=== PATIENT | female | born 1940 | race Caucasian/White ===

== ENCOUNTER → 2017-01-11 | Outpatient (CLI) | payer MEDICARE, BC ==
[2017-01-11 10:18] LABS: ALT 22 U/L (9-52); AST 19 U/L (14-36); Alkaline Phosphatase 97 U/L (38-126); Anion Gap 12 mmol/L; Blood Urea Nitrogen 16 mg/dL (7-17); Calcium 9.5 mg/dL (8.4-10.2); Carbon Dioxide 24 mmol/L (22-30); Chloride 106 mmol/L (98-107); Cholesterol 170 mg/dL (<200); Glucose 141 mg/dL (74-99); HDL Cholesterol 97 mg/dL (40-60); Non-African American GFR(MDRD) >60 (>60 ml/min/1.73 sqM); Potassium 4.5 mmol/L (3.5-5.1); Sodium 142 mmol/L (137-145); Total Bilirubin 0.5 mg/dL (0.2-1.3); Total Protein 7.5 g/dL (6.3-8.2); Triglycerides 102 mg/dL (<150)
[2017-01-11 21:44] LABS: Hemoglobin A1C 7.1 % (4.2-6.1)
== END | disposition home or self-care (01) ==
LOC: LABWHC1 08:49
PROVIDERS: ATTEND Internal Medicine
DX: E11.9 Type 2 diabetes mellitus without complications (principal); R53.83 Other fatigue; R53.81 Other malaise
CPT/HCPCS: 36415; 80053; 80061; 82043; 83036; 84439; 84443

== ENCOUNTER 2017-04-20 17:14 | Inpatient (IN) | payer MEDICARE, BC ==
[2017-04-20] MEDS ORDERED: SODIUM CHLORIDE 0.9% 1,000 ML IV STA (18:17)
--- NOTE | 2017-04-20 18:19 | ED ---
General Adult HPI - General Chief complaint: Chest Pain Stated complaint: SOB, HEADACHE, PAIN BETWEEN SHOULDER BLADES Time Seen by Provider: 04/20/17 17:52 Source: patient, RN notes reviewed, old records reviewed Mode of arrival: wheelchair Limitations: no limitations - History of Present Illness Initial comments: This is a 76-year-old female here for evaluation of shortness of breath, increasing shortness impression was of breath worse with exertion. Patient also felt chills, feverish. Denies cough or congestion. Denies specific fever , no travel history. Patient denies current shortness of breath that she is laying down. Patient says currently the shortness of breath, not feeling well feeling weak - Related Data Home Medications Medication Instructions Recorded Confirmed Acarbose [Precose] 50 mg PO HS 10/05/15 10/05/15 Albuterol Inhaler [Ventolin Hfa 1 puff INHALATION RT-Q8H PRN 10/05/15 10/05/15 Inhaler] Ferrous Sulfate [Feosol] 325 mg PO BID 10/05/15 10/05/15 Hydrochlorothiazide [Hydrodiuril] 25 mg PO HS 10/05/15 10/05/15 Levothyroxine Sodium [Synthroid] 100 mcg PO HS 10/05/15 10/05/15 Lisinopril [Zestril] 2.5 mg PO HS 10/05/15 10/05/15 Lovastatin [Mevacor] 40 mg PO HS 10/05/15 10/05/15 Sertraline [Zoloft] 50 mg PO HS 10/05/15 10/05/15 glipiZIDE [Glucotrol XL] 5 mg PO DAILY 10/05/15 10/05/15 metFORMIN HCL [Glucophage] 500 mg PO BID 10/05/15 10/05/15 prednisoLONE ACETATE 1% OPHTH 1 drops RIGHT EYE TID 10/05/15 10/05/15 [Pred Forte 1%] Previous Rx's Medication Instructions Recorded Cephalexin [Keflex] 500 mg PO Q8HR #21 cap 10/07/15 Insulin Detemir [Levemir] 14 unit SQ DAILY #1 vial 10/07/15 Allergies Allergy/AdvReac Type Severity Reaction Status Date / Time No Known Allergies Allergy Verified 04/20/17 17:36 Review of Systems ROS Statement: Those systems with pertinent positive or pertinent negative responses have been documented in the HPI. ROS Other: All systems not noted in ROS Statement are negative. Past Medical History Past Medical History: Diabetes Mellitus, Hyperlipidemia, Hypertension, Osteoarthritis (OA), Thyroid Disorder Additional Past Medical History / Comment(s): SIGMOID DIVERTICULOSIS, BENIGN POLYPS REMOVED, STRESS INCONT OF URINE, HEMORRHOIDS, History of Any Multi-Drug Resistant Organisms: None Reported Past Surgical History: Hysterectomy, Orthopedic Surgery Additional Past Surgical History / Comment(s): CORNEA TRANSPLANT Past Anesthesia/Blood Transfusion Reactions: No Reported Reaction Past Psychological History: Depression Smoking Status: Former smoker Past Alcohol Use History: None Reported Past Drug Use History: None Reported - Past Family History Father Family Medical History: Cancer Additional Family Medical History / Comment(s): LEUKEMIA Mother Family Medical History: Cancer Additional Family Medical History / Comment(s): BREAST, STOMACH,LIVER CANCER. EMPHYSEMA. General Exam Limitations: no limitations General appearance: alert, in no apparent distress, anxious Head exam: Present: atraumatic, normocephalic, normal inspection Eye exam: Present: normal appearance, PERRL, EOMI. Absent: scleral icterus, conjunctival injection, periorbital swelling ENT exam: Present: normal exam, mucous membranes moist Neck exam: Present: normal inspection. Absent: tenderness, meningismus, lymphadenopathy Respiratory exam: Present: normal lung sounds bilaterally. Absent: respiratory distress, wheezes, rales, rhonchi, stridor Cardiovascular Exam: Present: normal rhythm, tachycardia, normal heart sounds. Absent: systolic murmur, diastolic murmur, rubs, gallop, clicks GI/Abdominal exam: Present: soft, normal bowel sounds. Absent: distended, tenderness, guarding, rebound, rigid Extremities exam: Present: normal inspection, full ROM, normal capillary refill. Absent: tenderness, pedal edema, joint swelling, calf tenderness Back exam: Present: normal inspection Neurological exam: Present: alert, oriented X3, CN II-XII intact Psychiatric exam: Present: normal affect, normal mood Skin exam: Present: warm, dry, intact, normal color. Absent: rash Course Vital Signs 04/20/17 04/20/17 17:34 19:04 Temperature 99.0 F Pulse Rate 103 H 100 Respiratory 20 18 Rate Blood Pressure 115/67 108/49 O2 Sat by Pulse 98 97 Oximetry - Reevaluation(s) Reevaluation #1: 04/20/17 19:11 Patient still feels shortness of breath EKG Findings - EKG Comments: EKG Findings:: EKG shows normal sinus rhythm rate of 94, IN 1:30, QRS 80, QTC 427 Medical Decision Making - Medical Decision Making 76 female ER for evaluation of chest pain shortness of breath. Symptoms occurred earlier today [place]. It persisted. Patient be admitted for cardiac observation - Lab Data Result diagrams: 04/20/17 18:00 04/20/17 18:00 Lab Results 04/20/17 04/20/17 04/20/17 Range/Units 18:00 18:00 18:00 WBC 15.6 H (3.8-10.6) k/uL RBC 4.04 (3.80-5.40) m/uL Hgb 11.4 (11.4-16.0) gm/dL Hct 35.6 (34.0-46.0) % MCV 88.1 (80.0-100.0) fL MCH 28.3 (25.0-35.0) pg MCHC 32.1 (31.0-37.0) g/dL RDW 13.9 (11.5-15.5) % Plt Count 286 (150-450) k/uL Neutrophils % 93 % Lymphocytes % 2 % Monocytes % 4 % Eosinophils % 1 % Basophils % 0 % Neutrophils # 14.5 H (1.3-7.7) k/uL Lymphocytes # 0.4 L (1.0-4.8) k/uL Monocytes # 0.6 (0-1.0) k/uL Eosinophils # 0.1 (0-0.7) k/uL Basophils # 0.0 (0-0.2) k/uL PT (9.0-12.0) sec INR (<1.2) APTT (22.0-30.0) sec D-Dimer (<0.60) mg/L FEU Sodium 139 (137-145) mmol/L Potassium 4.2 (3.5-5.1) mmol/L Chloride 105 (98-107) mmol/L Carbon Dioxide 21 L (22-30) mmol/L Anion Gap 13 mmol/L BUN 24 H (7-17) mg/dL Creatinine 1.20 H (0.52-1.04) mg/dL Est GFR (MDRD) Af Amer 53 (>60 ml/min/1.73 sqM) Est GFR (MDRD) Non-Af 44 (>60 ml/min/1.73 sqM) Glucose 140 H (74-99) mg/dL Calcium 9.5 (8.4-10.2) mg/dL Magnesium 1.3 L (1.6-2.3) mg/dL Total Bilirubin 0.6 (0.2-1.3) mg/dL AST 25 (14-36) U/L ALT 30 (9-52) U/L Alkaline Phosphatase 97 (38-126) U/L Total Creatine Kinase 36 (30-135) U/L CK-MB (CK-2) 0.6 (0.0-2.4) ng/mL CK-MB (CK-2) Rel Index 1.7 Troponin I <0.012 (0.000-0.034) ng/mL NT-Pro-B Natriuret Pep pg/mL Total Protein 7.4 (6.3-8.2) g/dL Albumin 4.3 (3.5-5.0) g/dL Lipase 154 (23-300) U/L 04/20/17 04/20/17 Range/Units 18:00 18:00 WBC (3.8-10.6) k/uL RBC (3.80-5.40) m/uL Hgb (11.4-16.0) gm/dL Hct (34.0-46.0) % MCV (80.0-100.0) fL MCH (25.0-35.0) pg MCHC (31.0-37.0) g/dL RDW (11.5-15.5) % Plt Count (150-450) k/uL Neutrophils % % Lymphocytes % % Monocytes % % Eosinophils % % Basophils % % Neutrophils # (1.3-7.7) k/uL Lymphocytes # (1.0-4.8) k/uL Monocytes # (0-1.0) k/uL Eosinophils # (0-0.7) k/uL Basophils # (0-0.2) k/uL PT 9.6 (9.0-12.0) sec INR 0.9 (<1.2) APTT 23.8 (22.0-30.0) sec D-Dimer 1.46 H (<0.60) mg/L FEU Sodium (137-145) mmol/L Potassium (3.5-5.1) mmol/L Chloride (98-107) mmol/L Carbon Dioxide (22-30) mmol/L Anion Gap mmol/L BUN (7-17) mg/dL Creatinine (0.52-1.04) mg/dL Est GFR (MDRD) Af Amer (>60 ml/min/1.73 sqM) Est GFR (MDRD) Non-Af (>60 ml/min/1.73 sqM) Glucose (74-99) mg/dL Calcium (8.4-10.2) mg/dL Magnesium (1.6-2.3) mg/dL Total Bilirubin (0.2-1.3) mg/dL AST (14-36) U/L ALT (9-52) U/L Alkaline Phosphatase (38-126) U/L Total Creatine Kinase (30-135) U/L CK-MB (CK-2) (0.0-2.4) ng/mL CK-MB (CK-2) Rel Index Troponin I (0.000-0.034) ng/mL NT-Pro-B Natriuret Pep 232 pg/mL Total Protein (6.3-8.2) g/dL Albumin (3.5-5.0) g/dL Lipase (23-300) U/L - Radiology Data Radiology results: report reviewed (Chest x-ray is negative, CT is pending), image reviewed Critical Care Time Critical Care Time: Yes Total Critical Care Time: 31 Disposition Clinical Impression: Weakness, Chest pain Disposition: ADMITTED IP TO THIS [facility] Condition: Undetermined Referrals: Dany Hansen MD [Primary Care Provider] - 1-2 days
[2017-04-20 18:33] LABS: Basophils % (A) 0 %; CH 28.4; CHCM 32.4; Eosinophils # (A) 0.1 k/uL (0-0.7); Eosinophils % (A) 1 %; HCT 35.6 % (34.0-46.0); HDW 2.24; HGB 11.4 gm/dL (11.4-16.0); Luc # (Auto) 0.05; Luc % (Auto) 0; Lymphocytes # (A) 0.4 k/uL (1.0-4.8); Lymphocytes % (A) 2 %; MCH 28.3 pg (25.0-35.0); MCHC 32.1 g/dL (31.0-37.0); MCV 88.1 fL (80.0-100.0); Mean Platelet Volume 7.7; Monocytes # (A) 0.6 k/uL (0-1.0); Monocytes % (A) 4 %; Neutrophils # (A) 14.5 k/uL (1.3-7.7); Neutrophils % (A) 93 %; RBC 4.04 m/uL (3.80-5.40); RDW 13.9 % (11.5-15.5); WBC 15.6 k/uL (3.8-10.6); WBC (Perox) 14.75
--- NOTE | 2017-04-20 18:38 | XR ---
EXAMINATION TYPE: XR chest 2V DATE OF EXAM: 04/20/2017 COMPARISON: October 05, 2015 HISTORY: Shortness of breath TECHNIQUE: Frontal and lateral views of the chest are obtained. FINDINGS: Scattered senescent parenchymal changes noted. Hyperinflation compatible with COPD. No evidence for infiltrate. No evidence for atelectasis. Heart size is stable. Mediastinal structures are stable and grossly unremarkable. No evidence for hilar prominence. Degenerative changes dorsal spine. IMPRESSION: 1. No evidence for acute pulmonary disease.
[2017-04-20 18:50] LABS: Calcium 9.5 mg/dL (8.4-10.2); Magnesium 1.3 mg/dL (1.6-2.3); Potassium 4.2 mmol/L (3.5-5.1); Total Bilirubin 0.6 mg/dL (0.2-1.3); Total Protein 7.4 g/dL (6.3-8.2)
[2017-04-20 18:53] LABS: Creatine Kinase 36 U/L (30-135)
[2017-04-20 19:00] LABS: INR 0.9 (<1.2); Partial Thromboplastin Time 23.8 sec (22.0-30.0); Prothrombin Time 9.6 sec (9.0-12.0)
[2017-04-20 19:04] LABS: Creatine Kinase MB 0.6 ng/mL (0.0-2.4); Troponin I <0.012 ng/mL (0.000-0.034)
[2017-04-20] MEDS ORDERED: MORPHINE SULFATE 4 MG/ML SYRINGE IV PRN (19:09)
[2017-04-20] MEDS ORDERED: HEPARIN SODIUM,PORCINE 5,000 UNIT/ML 1 ML VIAL IV ONE (19:09)
[2017-04-20] MEDS ORDERED: NITROGLYCERIN SL TABS 0.4 MG TAB SUBLINGUAL PRN (19:09)
[2017-04-20] MEDS ORDERED: ASPIRIN 81 MG CHEW PO STA (19:09)
[2017-04-20] MEDS ORDERED: RX INFO: IV CONTRAST WAS GIVEN 1 EACH MISC MISCELLANE PRN (19:09)
[2017-04-20] MEDS ORDERED: HEPARIN SODIUM,PORCINE/D5W PMX 25,000 UNIT in DEXTROSE/WATER 1 500ML.BAG IV SCH (19:15)
[2017-04-20 21:01] LABS: Glucose,Whole Blood 162 mg/dL (75-99)
[2017-04-20] MEDS: MAGNESIUM SULFATE-D5W PMX 1 GM in DEXTROSE/WATER 1 100ML.BAG IVPB SCH ×2 (21:25→23:31)
[2017-04-20 22:42] VITALS: BMI 31.2
[2017-04-21 00:22] VITALS: RESP 18
[2017-04-21 01:58] LABS: Creatine Kinase 36 U/L (30-135)
[2017-04-21 02:11] LABS: Creatine Kinase MB 0.3 ng/mL (0.0-2.4); Troponin I <0.012 ng/mL (0.000-0.034)
[2017-04-21] MEDS: HEPARIN SODIUM,PORCINE 5,000 UNIT/ML 1 ML VIAL IV PRN ×2 (02:18→09:38)
[2017-04-21 06:17] LABS: Glucose,Whole Blood 152 mg/dL (75-99)
[2017-04-21 06:42] LABS: Mean Platelet Volume 8.1
[2017-04-21 07:03] LABS: Magnesium 2.1 mg/dL (1.6-2.3)
[2017-04-21 07:07] LABS: Creatine Kinase 28 U/L (30-135)
[2017-04-21 07:20] LABS: Creatine Kinase MB 0.3 ng/mL (0.0-2.4); Troponin I <0.012 ng/mL (0.000-0.034)
[2017-04-21] MEDS ORDERED: glipiZIDE 10 MG TAB PO SCH (07:30)
[2017-04-21] MEDS ORDERED: metFORMIN 500 MG TAB PO SCH (07:30)
--- NOTE | 2017-04-21 08:12 | P.HPIM ---
History of Present Illness Chief complaint: Chest and back pain associated with the headache and shortness of breath. Diarrhea. History of present illness: The patient is a 76-year-old female who presented to the emergency room yesterday evening. The patient states that that morning she had some loose stools and some chills and did not feel good. Slight congestion. Apparently later that afternoon she was playing with her grandchildren and developed chest and back discomfort. The pain appeared to be more related to movement. No cough or hemoptysis. No nausea or vomiting. Patient and her daughter came to the emergency room. Past medical history: Past history of type 2 diabetes Also history of hypertension Hyperlipidemia Hypothyroidism on replacement therapy History of treated depression Osteoarthritis History of sigmoid diverticulosis Former tobacco user and mild intermittent asthma. Previous surgical history includes hysterectomy and arthroscopic surgery of the right knee. Medications: Precose 50 mg daily with evening meal Albuterol inhaler 1-2 puffs every 8 hours when necessary Ferrous sulfate 325 mg once or twice a day with food 125 mg Synthroid 100 g daily lisinopril 2.5 mg Lovastatin 40 mg Zoloft 50 mg Glucotrol 5 mg XL daily Metformin 500 mg twice a day Prednisolone acetate 1% eyedrops 1 drop right eye 3 times a day. No known ALLERGIES Review of systems: The patient does complain of some mild headache. No visual disturbances. No cough with phlegm production at this time. The patient did have some loose stool yesterday morning but no melena or diarrhea. Patient does have some urinary incontinence at times but no dysuria. No unusual leg edema or extremity discomfort. Social history: Patient is a former smoker. She lives still fairly independently with help from her daughter. No history of any excessive alcohol use. Family history: Positive for breast and liver cancer along with history of emphysema. Physical examination Vital signs presently reveal temperature 98.1 with a pulse of 91 and regular. Respirations are 18 and blood pressure 123/55. She is 98% saturated on 2 L. Head and neck exam is unremarkable. Extraocular movements are intact. Pupils are equal and reactive. Neck supple without adenopathy, bruits or masses. No thyromegaly. Breast and pelvic exam deferred. Lungs were generally clear diffusely. Heart tones were regular without murmurs or rubs. Abdomen is soft and nontender. No organomegaly detected. Extremities reveal no edema. Neurologically she is alert and oriented. Cranial nerves intact. No focal weakness noted. Laboratory values: White count is 15.6 with hemoglobin 11.4 and a platelet count of 286. Her INR was 0.9. D-dimer that was elevated at 1.46. CO2 content was 21. Potassium and sodium were normal. Blood urea nitrogen was 24 with a creatinine of 1.2 given her GFR 44. Blood sugars up and around 140-160. CKs and troponins have remained low with a CK in the 30s and troponins less than 0.0123. Albumin and total protein were normal. Total cholesterol is only 140 with a LDL cholesterol 38. Chest x-ray shows no evidence of acute disease. EKG yesterday and this morning shows a normal sinus rhythm without any ischemic changes. Impressions and plans: Overall this 76-year-old female with chest and back discomfort and so far negative workup with the chest x-ray, EKG, and enzymes. Patient did have an elevated d-dimer and VQ scan was ordered for this morning. We will also ask for cardiology evaluation and consultation. The patient does have multiple comorbidities which include her previous smoking history along with hypertension , diabetes and hyperlipidemia although these appear to be well-controlled at this time. Past Medical History Past Medical History: Diabetes Mellitus, Hyperlipidemia, Hypertension, Osteoarthritis (OA), Thyroid Disorder Additional Past Medical History / Comment(s): SIGMOID DIVERTICULOSIS, BENIGN POLYPS REMOVED, STRESS INCONT OF URINE, HEMORRHOIDS, History of Any Multi-Drug Resistant Organisms: None Reported Past Surgical History: Hysterectomy, Orthopedic Surgery Additional Past Surgical History / Comment(s): CORNEA TRANSPLANT Past Anesthesia/Blood Transfusion Reactions: No Reported Reaction Past Psychological History: Depression Smoking Status: Former smoker Past Alcohol Use History: None Reported Additional Past Alcohol Use History / Comment(s): SMOKED X 44 YEARS, QUIT 2011( SMOKED 1 PPD) Past Drug Use History: None Reported - Past Family History Father Family Medical History: Cancer Additional Family Medical History / Comment(s): LEUKEMIA Mother Family Medical History: Cancer Additional Family Medical History / Comment(s): BREAST, STOMACH,LIVER CANCER. EMPHYSEMA. Medications and Allergies Home Medications Medication Instructions Recorded Confirmed Type Albuterol Inhaler [Ventolin Hfa 1 puff INHALATION RT-TID PRN 10/05/15 04/20/17 History Inhaler] Ferrous Sulfate [Feosol] 325 mg PO HS 10/05/15 04/20/17 History Hydrochlorothiazide [Hydrodiuril] 25 mg PO HS 10/05/15 04/20/17 History Lisinopril [Zestril] 2.5 mg PO HS 10/05/15 04/20/17 History Lovastatin [Mevacor] 40 mg PO HS 10/05/15 04/20/17 History Sertraline [Zoloft] 50 mg PO HS 10/05/15 04/20/17 History metFORMIN HCL [Glucophage] 1,000 mg PO BID 10/05/15 04/20/17 History Acarbose 50 mg PO HS 04/20/17 04/20/17 History Insulin Detemir [Levemir] 8 unit SQ HS 04/20/17 04/20/17 History Levothyroxine Sodium [Synthroid] 137 mcg PO HS 04/20/17 04/20/17 History Pioglitazone [Actos] 15 mg PO QAM 04/20/17 04/20/17 History glipiZIDE [Glucotrol] 10 mg PO AC-BID 04/20/17 04/20/17 History Allergies Allergy/AdvReac Type Severity Reaction Status Date / Time No Known Allergies Allergy Verified 04/20/17 17:36 Physical Exam Vitals: Vital Signs Temp Pulse Pulse Resp BP BP Pulse Ox 04/21/17 03:35 98.1 F 91 18 123/55 98 04/21/17 03:34 90 18 04/21/17 00:00 97.7 F 90 18 112/53 100 04/20/17 19:54 98.7 F 104 H 17 107/60 98 04/20/17 19:32 97.8 F 82 18 108/58 98 04/20/17 19:04 100 18 108/49 97 04/20/17 17:34 99.0 F 103 H 20 115/67 98 Intake and Output 04/20/17 04/21/17 04/21/17 22:59 06:59 14:59 Intake Total 119.259 Output Total 300 200 Balance -300 -80.741 Intake: Intake, IV Titration 119.259 Amount Heparin Sodium,Porcine/ 119.259 D5w Pmx 25,000 unit In Dextrose/Water 1 500ml. bag @ 12 UNITS/KG/HR 17. 41 mls/hr IV .Q24H [facility] Rx #:[id number] Output: Urine 300 200 Other: Voiding Method Bedpan # Voids 1 1 Weight 72.575 kg 76 kg Results CBC & Chem 7: 04/21/17 05:42 04/20/17 18:00 Labs: Abnormal Lab Results - Last 24 Hours (Table) 04/20/17 04/20/17 04/20/17 Range/Units 18:00 18:00 18:00 WBC 15.6 H (3.8-10.6) k/uL Neutrophils # 14.5 H (1.3-7.7) k/uL Lymphocytes # 0.4 L (1.0-4.8) k/uL D-Dimer 1.46 H (<0.60) mg/L FEU Carbon Dioxide 21 L (22-30) mmol/L BUN 24 H (7-17) mg/dL Creatinine 1.20 H (0.52-1.04) mg/dL Glucose 140 H (74-99) mg/dL POC Glucose (mg/dL) (75-99) mg/dL Magnesium 1.3 L (1.6-2.3) mg/dL Total Creatine Kinase (30-135) U/L HDL Cholesterol (40-60) mg/dL 04/20/17 04/21/17 04/21/17 Range/Units 20:58 05:42 05:42 WBC (3.8-10.6) k/uL Neutrophils # (1.3-7.7) k/uL Lymphocytes # (1.0-4.8) k/uL D-Dimer (<0.60) mg/L FEU Carbon Dioxide (22-30) mmol/L BUN (7-17) mg/dL Creatinine (0.52-1.04) mg/dL Glucose (74-99) mg/dL POC Glucose (mg/dL) 162 H (75-99) mg/dL Magnesium (1.6-2.3) mg/dL Total Creatine Kinase 28 L (30-135) U/L HDL Cholesterol 82 H (40-60) mg/dL 04/21/17 Range/Units 06:14 WBC (3.8-10.6) k/uL Neutrophils # (1.3-7.7) k/uL Lymphocytes # (1.0-4.8) k/uL D-Dimer (<0.60) mg/L FEU Carbon Dioxide (22-30) mmol/L BUN (7-17) mg/dL Creatinine (0.52-1.04) mg/dL Glucose (74-99) mg/dL POC Glucose (mg/dL) 152 H (75-99) mg/dL Magnesium (1.6-2.3) mg/dL Total Creatine Kinase (30-135) U/L HDL Cholesterol (40-60) mg/dL Thrombosis Risk Factor Assmnt - Choose All That Apply Each Risk Factor Represents 3 Points: Age 75 years or older Thrombosis Risk Factor Assessment Total Risk Factor Score: 3 Thrombosis Risk Factor Assessment Level: Moderate Risk
[2017-04-21] MEDS ORDERED: ASPIRIN 325 MG TAB PO SCH (09:00)
[2017-04-21 11:19] VITALS: BP 123/59; PULSE 68; TEMP 98.6
[2017-04-21 12:12] LABS: Hemoglobin A1C 7.1 % (4.2-6.1)
--- NOTE | 2017-04-21 12:40 | NM ---
EXAMINATION TYPE: NM pul vent and perfuse DATE OF EXAM: 04/21/2017 COMPARISON: NONE HISTORY: Shortness of breath TECHNIQUE: Utilizing inhalation of 71.4 mCi Tc 99m DTPA aerosol and intravenous injection of 5.5 mCi of Tc 99m MAA, ventilation and perfusion images are acquired post injection in multiple projections. FINDINGS: There is central accumulation of radiotracer compatible with COPD. Several matched perfusion ventilat ion defects seen. No evidence for perfusion mismatch. IMPRESSION: Low probability for pulmonary embolism.
--- NOTE | 2017-04-21 12:40 | P.CRDCN ---
History of Present Illness History of present illness: 76-year-old female with a history of hypertension, well controlled, diabetes adult onset and sleep anemia on statins LDL 38 who presents with interscapular discomfort and tightness in the chest with normal cardiac enzymes 3. ECG does not show any definite ST segment abnormalities VQ scan pending for elevated d-dimer Mediastinum appears normal Examination is normal heart sounds are normal I would recommend outpatient stress testing and follow-up at the least See full consult by nurse practitioner/CP Past Medical History Past Medical History: Diabetes Mellitus, Hyperlipidemia, Hypertension, Osteoarthritis (OA), Thyroid Disorder Additional Past Medical History / Comment(s): SIGMOID DIVERTICULOSIS, BENIGN POLYPS REMOVED, STRESS INCONT OF URINE, HEMORRHOIDS, History of Any Multi-Drug Resistant Organisms: None Reported Past Surgical History: Hysterectomy, Orthopedic Surgery Additional Past Surgical History / Comment(s): CORNEA TRANSPLANT Past Anesthesia/Blood Transfusion Reactions: No Reported Reaction Past Psychological History: Depression Smoking Status: Former smoker Past Alcohol Use History: None Reported Additional Past Alcohol Use History / Comment(s): SMOKED X 44 YEARS, QUIT 2011( SMOKED 1 PPD) Past Drug Use History: None Reported - Past Family History Father Family Medical History: Cancer Additional Family Medical History / Comment(s): LEUKEMIA Mother Family Medical History: Cancer Additional Family Medical History / Comment(s): BREAST, STOMACH,LIVER CANCER. EMPHYSEMA. Medications and Allergies Home Medications Medication Instructions Recorded Confirmed Type Albuterol Inhaler [Ventolin Hfa 1 puff INHALATION RT-TID PRN 10/05/15 04/20/17 History Inhaler] Ferrous Sulfate [Feosol] 325 mg PO HS 10/05/15 04/20/17 History Hydrochlorothiazide [Hydrodiuril] 25 mg PO HS 10/05/15 04/20/17 History Lisinopril [Zestril] 2.5 mg PO HS 10/05/15 04/20/17 History Lovastatin [Mevacor] 40 mg PO HS 10/05/15 04/20/17 History Sertraline [Zoloft] 50 mg PO HS 10/05/15 04/20/17 History metFORMIN HCL [Glucophage] 1,000 mg PO BID 10/05/15 04/20/17 History Acarbose 50 mg PO HS 04/20/17 04/20/17 History Insulin Detemir [Levemir] 8 unit SQ HS 04/20/17 04/20/17 History Levothyroxine Sodium [Synthroid] 137 mcg PO HS 04/20/17 04/20/17 History Pioglitazone [Actos] 15 mg PO QAM 04/20/17 04/20/17 History glipiZIDE [Glucotrol] 10 mg PO AC-BID 04/20/17 04/20/17 History Allergies Allergy/AdvReac Type Severity Reaction Status Date / Time No Known Allergies Allergy Verified 04/20/17 17:36 Physical Exam Vitals: Vital Signs Temp Pulse Pulse Resp BP BP Pulse Ox 04/21/17 11:17 98.6 F 68 18 123/59 95 04/21/17 08:00 99.1 F 95 18 123/57 97 04/21/17 03:35 98.1 F 91 18 123/55 98 04/21/17 03:34 90 18 04/21/17 00:00 97.7 F 90 18 112/53 100 04/20/17 19:54 98.7 F 104 H 17 107/60 98 04/20/17 19:32 97.8 F 82 18 108/58 98 04/20/17 19:04 100 18 108/49 97 04/20/17 17:34 99.0 F 103 H 20 115/67 98 Intake and Output 04/20/17 04/21/17 04/21/17 22:59 06:59 14:59 Intake Total 119.259 159.284 Output Total 300 200 Balance -300 -80.741 159.284 Intake: Intake, IV Titration 119.259 159.284 Amount Heparin Sodium,Porcine/ 119.259 159.284 D5w Pmx 25,000 unit In Dextrose/Water 1 500ml. bag @ 12 UNITS/KG/HR 17. 41 mls/hr IV .Q24H [facility] Rx #:[id number] Output: Urine 300 200 Other: Voiding Method Bedpan # Voids 1 1 Weight 72.575 kg 76 kg Results 04/21/17 05:42 04/20/17 18:00 Cardiac Enzymes 04/20/17 04/20/17 04/21/17 Range/Units 18:00 18:00 01:08 AST 25 (14-36) U/L CK-MB (CK-2) 0.6 0.3 (0.0-2.4) ng/mL Troponin I <0.012 <0.012 (0.000-0.034) ng/mL 04/21/17 Range/Units 05:42 AST (14-36) U/L CK-MB (CK-2) 0.3 (0.0-2.4) ng/mL Troponin I <0.012 (0.000-0.034) ng/mL Coagulation 04/20/17 04/21/17 04/21/17 Range/Units 18:00 01:08 08:45 PT 9.6 (9.0-12.0) sec APTT 23.8 29.8 41.9 H (22.0-30.0) sec Lipids 04/21/17 Range/Units 05:42 Triglycerides 100 (<150) mg/dL Cholesterol 140 (<200) mg/dL HDL Cholesterol 82 H (40-60) mg/dL CBC 04/20/17 04/21/17 Range/Units 18:00 05:42 WBC 15.6 H (3.8-10.6) k/uL RBC 4.04 (3.80-5.40) m/uL Hgb 11.4 (11.4-16.0) gm/dL Hct 35.6 (34.0-46.0) % Plt Count 286 220 (150-450) k/uL Comprehensive Metabolic Panel 04/20/17 Range/Units 18:00 Sodium 139 (137-145) mmol/L Potassium 4.2 (3.5-5.1) mmol/L Chloride 105 (98-107) mmol/L Carbon Dioxide 21 L (22-30) mmol/L BUN 24 H (7-17) mg/dL Creatinine 1.20 H (0.52-1.04) mg/dL Glucose 140 H (74-99) mg/dL Calcium 9.5 (8.4-10.2) mg/dL AST 25 (14-36) U/L ALT 30 (9-52) U/L Alkaline Phosphatase 97 (38-126) U/L Total Protein 7.4 (6.3-8.2) g/dL Albumin 4.3 (3.5-5.0) g/dL Current Medications Generic Name Dose Route Start Last Admin Trade Name Freq PRN Reason Stop Dose Admin Aspirin 325 mg 04/21/17 09:00 04/21/17 09:40 Aspirin PO 325 mg DAILY INE[facility] Administration Glipizide 10 mg 04/21/17 07:30 Glucotrol PO AC-BID [facility] Heparin Sodium (Porcine) 0 unit 04/20/17 19:09 04/21/17 09:38 Heparin IV 1,900 unit Q6HR PRN Administration Low PTT Protocol Heparin Sodium/Dextrose 25,000 500 mls @ 17.41 mls/hr 04/20/17 19:15 09:38 unit/ IV Solution IV 17 units/kg/hr .Q24H [facility] 24.67 mls/hr Protocol Titration 12 UNITS/KG/HR Insulin Detemir 8 unit 04/21/17 21:00 Levemir SQ HS [facility] Metformin HCl 1,000 mg 04/21/17 07:30 Glucophage PO AC-BID [facility] Miscellaneous Information 1 each 04/20/17 19:09 Rx Info: Iv Contrast Was Given MISCELLANE 04/22/17 19:10 DAILY PRN Per Protocol Morphine Sulfate 4 mg 04/20/17 19:09 Morphine Sulfate (Inj) IV Q5M PRN Chest Pain Nitroglycerin 0.4 mg 04/20/17 19:09 Nitrostat SUBLINGUAL Q5M PRN Chest Pain Intake and Output 04/20/17 04/21/17 04/21/17 22:59 06:59 14:59 Intake Total 119.259 159.284 Output Total 300 200 Balance -300 -80.741 159.284 Intake: Intake, IV Titration 119.259 159.284 Amount Heparin Sodium,Porcine/ 119.259 159.284 D5w Pmx 25,000 unit In Dextrose/Water 1 500ml. bag @ 12 UNITS/KG/HR 17. 41 mls/hr IV .Q24H [facility] Rx #:[id number] Output: Urine 300 200 Other: Voiding Method Bedpan # Voids 1 1 Weight 72.575 kg 76 kg 04/21/17 05:42 04/20/17 18:00
[2017-04-21 13:10] LABS: Glucose,Whole Blood 134 mg/dL (75-99)
--- NOTE | 2017-04-21 14:07 | P.CRDCN ---
History of Present Illness Consult date: 04/21/17 Reason for Consult (text): chest pain Chief complaint: back pain History of present illness: This is a pleasant 76-year-old female with a history of hypertension, diabetes and hyperlipidemia. He presented to the emergency department with complaints of intrascapular discomfort and tightness in her chest nausea. Troponins have been negative 3. EKG shows sinus rhythm without acute ST-T wave abnormalities. D-dimer was elevated at 1.46 and a VQ scan has been ordered. The patient's magnesium was low on admission at 1.3 and this has been supplemented and has normalized to 2.1. Laboratory values showed a BUN 24 and creatinine 1.2. Chest x-ray showed no acute cardiopulmonary process. Lipids show very good control with an LDL of 38. On examination, patient is resting comfortably in bed. She denies further complaints of chest or back discomfort and has had no nausea or vomiting since admission. Past Medical History Past Medical History: Diabetes Mellitus, Hyperlipidemia, Hypertension, Osteoarthritis (OA), Thyroid Disorder Additional Past Medical History / Comment(s): SIGMOID DIVERTICULOSIS, BENIGN POLYPS REMOVED, STRESS INCONT OF URINE, HEMORRHOIDS, History of Any Multi-Drug Resistant Organisms: None Reported Past Surgical History: Hysterectomy, Orthopedic Surgery Additional Past Surgical History / Comment(s): CORNEA TRANSPLANT Past Anesthesia/Blood Transfusion Reactions: No Reported Reaction Past Psychological History: Depression Smoking Status: Former smoker Past Alcohol Use History: None Reported Additional Past Alcohol Use History / Comment(s): SMOKED X 44 YEARS, QUIT 2011( SMOKED 1 PPD) Past Drug Use History: None Reported - Past Family History Father Family Medical History: Cancer Additional Family Medical History / Comment(s): LEUKEMIA Mother Family Medical History: Cancer Additional Family Medical History / Comment(s): BREAST, STOMACH,LIVER CANCER. EMPHYSEMA. Medications and Allergies Home Medications Medication Instructions Recorded Confirmed Type Albuterol Inhaler [Ventolin Hfa 1 puff INHALATION RT-TID PRN 10/05/15 04/20/17 History Inhaler] Ferrous Sulfate [Feosol] 325 mg PO HS 10/05/15 04/20/17 History Hydrochlorothiazide [Hydrodiuril] 25 mg PO HS 10/05/15 04/20/17 History Lisinopril [Zestril] 2.5 mg PO HS 10/05/15 04/20/17 History Lovastatin [Mevacor] 40 mg PO HS 10/05/15 04/20/17 History Sertraline [Zoloft] 50 mg PO HS 10/05/15 04/20/17 History metFORMIN HCL [Glucophage] 1,000 mg PO BID 10/05/15 04/20/17 History Acarbose 50 mg PO HS 04/20/17 04/20/17 History Insulin Detemir [Levemir] 8 unit SQ HS 04/20/17 04/20/17 History Levothyroxine Sodium [Synthroid] 137 mcg PO HS 04/20/17 04/20/17 History Pioglitazone [Actos] 15 mg PO QAM 04/20/17 04/20/17 History glipiZIDE [Glucotrol] 10 mg PO AC-BID 04/20/17 04/20/17 History Allergies Allergy/AdvReac Type Severity Reaction Status Date / Time No Known Allergies Allergy Verified 04/20/17 17:36 Physical Exam Vitals: Vital Signs Temp Pulse Pulse Resp BP BP Pulse Ox 04/21/17 11:17 98.6 F 68 18 123/59 95 04/21/17 08:00 99.1 F 95 18 123/57 97 04/21/17 03:35 98.1 F 91 18 123/55 98 04/21/17 03:34 90 18 04/21/17 00:00 97.7 F 90 18 112/53 100 04/20/17 19:54 98.7 F 104 H 17 107/60 98 04/20/17 19:32 97.8 F 82 18 108/58 98 04/20/17 19:04 100 18 108/49 97 04/20/17 17:34 99.0 F 103 H 20 115/67 98 Intake and Output 04/20/17 04/21/17 04/21/17 22:59 06:59 14:59 Intake Total 119.259 159.284 Output Total 300 200 Balance -300 -80.741 159.284 Intake: Intake, IV Titration 119.259 159.284 Amount Heparin Sodium,Porcine/ 119.259 159.284 D5w Pmx 25,000 unit In Dextrose/Water 1 500ml. bag @ 12 UNITS/KG/HR 17. 41 mls/hr IV .Q24H [facility] Rx #:[id number] Output: Urine 300 200 Other: Voiding Method Bedpan # Voids 1 1 Weight 72.575 kg 76 kg PHYSICAL EXAMINATION: HEENT: Head is atraumatic, normocephalic. Pupils equal, round. Neck is supple. There is no elevated jugular venous pressure. HEART EXAMINATION: Heart sounds regular, S1 and S2 normal. No murmur or gallop heard. CHEST EXAMINATION: Lungs are clear to auscultation and precussion. No chest wall tenderness is noted on palpation or with deep breathing. ABDOMEN: Soft, nontender. Bowel sounds are heard. No organomegaly noted. EXTREMITIES: 2+ peripheral pulses with no evidence of peripheral edema and no calf tenderness noted. NEUROLOGIC patient is awake, alert and oriented x3. . Results 04/21/17 05:42 04/20/17 18:00 Cardiac Enzymes 04/20/17 04/20/17 04/21/17 Range/Units 18:00 18:00 01:08 AST 25 (14-36) U/L CK-MB (CK-2) 0.6 0.3 (0.0-2.4) ng/mL Troponin I <0.012 <0.012 (0.000-0.034) ng/mL 04/21/17 Range/Units 05:42 AST (14-36) U/L CK-MB (CK-2) 0.3 (0.0-2.4) ng/mL Troponin I <0.012 (0.000-0.034) ng/mL Coagulation 04/20/17 04/21/17 04/21/17 Range/Units 18:00 01:08 08:45 PT 9.6 (9.0-12.0) sec APTT 23.8 29.8 41.9 H (22.0-30.0) sec Lipids 04/21/17 Range/Units 05:42 Triglycerides 100 (<150) mg/dL Cholesterol 140 (<200) mg/dL HDL Cholesterol 82 H (40-60) mg/dL CBC 04/20/17 04/21/17 Range/Units 18:00 05:42 WBC 15.6 H (3.8-10.6) k/uL RBC 4.04 (3.80-5.40) m/uL Hgb 11.4 (11.4-16.0) gm/dL Hct 35.6 (34.0-46.0) % Plt Count 286 220 (150-450) k/uL Comprehensive Metabolic Panel 04/20/17 Range/Units 18:00 Sodium 139 (137-145) mmol/L Potassium 4.2 (3.5-5.1) mmol/L Chloride 105 (98-107) mmol/L Carbon Dioxide 21 L (22-30) mmol/L BUN 24 H (7-17) mg/dL Creatinine 1.20 H (0.52-1.04) mg/dL Glucose 140 H (74-99) mg/dL Calcium 9.5 (8.4-10.2) mg/dL AST 25 (14-36) U/L ALT 30 (9-52) U/L Alkaline Phosphatase 97 (38-126) U/L Total Protein 7.4 (6.3-8.2) g/dL Albumin 4.3 (3.5-5.0) g/dL Current Medications Generic Name Dose Route Start Last Admin Trade Name Freq PRN Reason Stop Dose Admin Aspirin 325 mg 04/21/17 09:00 04/21/17 09:40 Aspirin PO 325 mg DAILY INE[facility] Administration Glipizide 10 mg 04/21/17 07:30 04/21/17 12:51 Glucotrol PO 10 mg AC-BID INEZ Administration Heparin Sodium (Porcine) 0 unit 04/20/17 19:09 04/21/17 09:38 Heparin IV 1,900 unit Q6HR PRN Administration Low PTT Protocol Heparin Sodium/Dextrose 25,000 500 mls @ 17.41 mls/hr 04/20/17 19:15 09:38 unit/ IV Solution IV 17 units/kg/hr .Q24H [facility] 24.67 mls/hr Protocol Titration 12 UNITS/KG/HR Insulin Detemir 8 unit 04/21/17 21:00 Levemir SQ HS INEZ Metformin HCl 1,000 mg 04/21/17 07:30 04/21/17 12:51 Glucophage PO 1,000 mg AC-BID INEZ Administration Miscellaneous Information 1 each 04/20/17 19:09 Rx Info: Iv Contrast Was Given MISCELLANE 04/22/17 19:10 DAILY PRN Per Protocol Morphine Sulfate 4 mg 04/20/17 19:09 Morphine Sulfate (Inj) IV Q5M PRN Chest Pain Nitroglycerin 0.4 mg 04/20/17 19:09 Nitrostat SUBLINGUAL Q5M PRN Chest Pain Intake and Output 04/20/17 04/21/17 04/21/17 22:59 06:59 14:59 Intake Total 119.259 159.284 Output Total 300 200 Balance -300 -80.741 159.284 Intake: Intake, IV Titration 119.259 159.284 Amount Heparin Sodium,Porcine/ 119.259 159.284 D5w Pmx 25,000 unit In Dextrose/Water 1 500ml. bag @ 12 UNITS/KG/HR 17. 41 mls/hr IV .Q24H [facility] Rx #:[id number] Output: Urine 300 200 Other: Voiding Method Bedpan # Voids 1 1 Weight 72.575 kg 76 kg 04/21/17 05:42 04/20/17 18:00 EKG Interpretations (text) Sinus rhythm Assessment and Plan Plan: Assessment and plan Chest and interscapular discomfort, troponins negative 3, elevated d-dimer awaiting VQ scan results. #2 diabetes #3 hypertension #4 hyperlipidemia From cardiology perspective, we'll obtain 2-D echo with Doppler. She was instructed to increase her activity, get up out of bed walking. From our standpoint, if VQ scan is negative and patient continues to be asymptomatic, patient may be discharged home. Will follow-up in the office with her and schedule her for an outpatient stress test. BACK STAYER note has been reviewed, I agree with a documented findings and plan of care. Patient was seen and examined.
--- NOTE | 2017-04-21 17:23 | ECHOF ---
Referral Reason:chest pain MEASUREMENTS -------- HEIGHT: 152.4 cm WEIGHT: 75.7 kg BP: 123/57 RVIDd: 2.4 cm (< 3.3) IVSd: 1.3 cm (0.6 - 1.1) LVIDd: 4.1 cm (3.9 - 5.3) LVPWd: 1.3 cm (0.6 - 1.1) IVSs: 1.7 cm LVIDs: 2.8 cm LVPWs: 1.7 cm LAESV Index (A-L): 30.82 ml/m Ao Diam: 3.2 cm (2.0 - 3.7) AV Cusp: 1.6 cm (1.5 - 2.6) LA Diam: 3.6 cm (2.7 - 3.8) MV E Radhames: 0.99 m/s MV DecT: 249 ms MV A Radhames: 1.21 m/s MV E/A Ratio: 0.82 RAP: 5.00 mmHg RVSP: 34.27 mmHg FINDINGS -------- Sinus rhythm. This was a technically adequate study. There is mild concentric left ventricular hypertrophy. Overall left ventricular systolic function is normal with, an EF between 55 - 60 %. The right ventricle is normal in size and function. LA is midly dilated 29-33ml/m2. The right atrium is normal in size. Aortic valve is trileaflet and is mildly thickened. There is no evidence of aortic regurgitation. There is no evidence of aortic stenosis. The mitral valve leaflets are mildly thickened. There is trace mitral regurgitation. Trace tricuspid regurgitation present. There is borderline pulmonary hypertension. The right ventricular systolic pressure, as measured by Doppler, is 34.27mmHg. The pulmonic valve was not well visualized. The aortic root size is normal. Normal inferior vena cava with normal inspiratory collapse consistent with estimated right atrial pressure of 5 mmHg. The pericardium is normal. There is no pericardial effusion. CONCLUSIONS -------- 1. Sinus rhythm. 2. There is borderline pulmonary hypertension. 3. The right ventricular systolic pressure, as measured by Doppler, is 34.27mmHg. 4. The pulmonic valve was not well visualized. 5. The aortic root size is normal. 6. There is no pericardial effusion. 7. This was a technically adequate study. 8. There is mild concentric left ventricular hypertrophy. 9. Overall left ventricular systolic function is normal with, an EF between 55 - 60 %. 10. LA is midly dilated 29-33ml/m2. 11. Aortic valve is trileaflet and is mildly thickened. 12. The mitral valve leaflets are mildly thickened. 13. There is trace mitral regurgitation. 14. Trace tricuspid regurgitation present. DISCOUNT CLERK: Bib Gordillo RDCS
[2017-04-21] MEDS ORDERED: INSULIN DETEMIR 100 UNIT/ML 10 ML VIAL SQ SCH (21:00)
--- NOTE | 2017-04-27 12:23 | DS ---
Mrs. Byrd is a 76-year-old female who presented initially to the emergency room with back and chest discomfort. She had shortness of breath, headache and loose stool associated with this. Patient had multiple risk factors including diabetes, hypertension, and hyperlipidemia along with hypothyroidism. Patient was observed on the monitor floor. The initial laboratory values and subsequent values revealed normal troponin and CK values. Her white count was elevated at 15.6 with hemoglobin 11.4 and platelet count of 286. D-dimer was elevated at 1.46. Initial chest x-ray was unremarkable and EKG did not show any ischemic changes. Because of the elevated d-dimer a subsequent VQ scan was obtained and because of the chest pain Cardiology was consulted. The VQ scan showed low probability for any pulmonary embolus. Echocardiogram showed a normal sinus rhythm, borderline hypertension. Right ventricular systolic pressure was 34.2 and ejection fraction was between 55 and 60%, which is considered normal. Patient remains asymptomatic, was able to be ambulated at this point and patient was discharged to home with follow up in the office. Resume her home medications: Acarbose 50 mg with her major meal. She takes albuterol inhaler one puff three times a day. Ferrous sulfate 325 daily, hydrochlorothiazide 25 mg daily, Levemir insulin 8 units daily, levothyroxine 137 mcg, lisinopril 2.5 daily, lovastatin 40 mg daily, Actos 15 mg daily, Zoloft 50 mg daily, Glucotrol twice a day, and metformin 1000 mg which is two 500 tablets twice a day. FINAL DISCHARGE DIAGNOSES: 1. Musculoskeletal chest pain with an elevated d-dimer, pulmonary embolus ruled out. 2. Past medical history of diabetes. 3. Hypertension. 4. Hyperlipidemia. 5. Hypothyroidism on replacement. 6. History of treated depression. 7. Osteoarthritis. 8. Sigmoid diverticulosis. 9. History of former tobacco use and mild intermittent asthma. 10. Also previous surgical history that includes hysterectomy, previous arthroscopic surgery of the right knee. Patient is also recommended to have a stress test as an outpatient and this will be followed up after being seen in the office. She is to call for any questions, concerns or problems should arise. IRENE
== END 2017-04-21 16:10 | disposition home or self-care (01) | DRG 313 ==
LOC: EC 17:14 → 6SEL 19:09
PROVIDERS: ADMIT Internal Medicine; ATTEND Internal Medicine
DX: R07.89 Other chest pain (principal); E11.9 Type 2 diabetes mellitus without complications; I10 Essential (primary) hypertension; F32.9 Major depressive disorder, single episode, unspecified; D72.829 Elevated white blood cell count, unspecified; J45.20 Mild intermittent asthma, uncomplicated; M19.90 Unspecified osteoarthritis, unspecified site; R51 Headache; M54.9 Dorsalgia, unspecified; E03.9 Hypothyroidism, unspecified; E78.5 Hyperlipidemia, unspecified; R53.1 Weakness; R68.83 Chills (without fever); R19.7 Diarrhea, unspecified; R11.0 Nausea; K64.9 Unspecified hemorrhoids; N39.3 Stress incontinence (female) (male); K57.30 Diverticulosis of large intestine without perforation or abscess without bleeding; Z87.891 Personal history of nicotine dependence; Z80.0 Family history of malignant neoplasm of digestive organs; Z80.6 Family history of leukemia; Z79.4 Long term (current) use of insulin; Z82.5 Family history of asthma and other chronic lower respiratory diseases; Z79.899 Other long term (current) drug therapy; Z90.710 Acquired absence of both cervix and uterus; Z80.3 Family history of malignant neoplasm of breast; Z86.010 Personal history of colon polyps; Z94.7 Corneal transplant status
CPT/HCPCS: 36415; 71020; 78582; 80053; 80061; 82550; 82553; 83036; 83690; 83735; 83880; 84443; 84484; 85025; 85049; 85379; 85610; 85730; 93005; 93306; 96365; 96376; 99291

== ENCOUNTER → 2017-10-24 | Outpatient (CLI) | payer MEDICARE ==
[2017-10-24 09:53] LABS: Anion Gap 14 mmol/L; Blood Urea Nitrogen 20 mg/dL (7-17); Carbon Dioxide 27 mmol/L (22-30); Chloride 101 mmol/L (98-107); Cholesterol 179 mg/dL (<200); Glucose 125 mg/dL (74-99); HDL Cholesterol 106 mg/dL (40-60); LDL Cholesterol,Calculated 49 mg/dL (0-99); Potassium 3.5 mmol/L (3.5-5.1); Sodium 142 mmol/L (137-145); Triglycerides 119 mg/dL (<150)
[2017-10-24 19:13] LABS: Hemoglobin A1C 7.6 % (4.0-6.0)
== END | disposition home or self-care (01) ==
LOC: LABWHC1 08:40
PROVIDERS: ATTEND Internal Medicine
DX: E87.8 Other disorders of electrolyte and fluid balance, not elsewhere classified (principal); E11.9 Type 2 diabetes mellitus without complications; R53.83 Other fatigue; E78.5 Hyperlipidemia, unspecified
CPT/HCPCS: 36415; 80048; 80061; 83036; 84443

== ENCOUNTER → 2017-11-22 | Outpatient (CLI) | payer MEDICARE ==
--- NOTE | 2017-11-22 17:16 | BD ---
EXAMINATION TYPE: MG DEXA axial skeleton. DATE OF EXAM: 11/22/2017 COMPARISON: 06/07/2011 CLINICAL HISTORY: 77-year-old female postmenopausal screening, M85.80 Height: 60 IN Weight: 183 LBS FRAX RISK QUESTIONS: Alcohol (3 or more units per day): NO Family History (Parent hip fracture): NO Glucocorticoids (More than 3mos): NO (Ex: prednisone, prednisolone, methylprednisolone, dexamethasone, and hydrocortisone). History of Fracture in Adulthood: YES LT ANKLE AGE 56; LT ELBOW AGE 63 Secondary Osteoporosis: 1. Type 1 Diabetes: NO 2. Hyperthyroidism: NO 3. Menopause before 45: NO AGE 51 4. Malnutrition: NO 5. Chronic liver disease: NO Rheumatoid Arthritis: NO Current Tobacco Use: NO RISK FACTORS HISTORY OF: Active: YES Postmenopausal woman: AGE 51 MEDICATIONS: Thyroid Medications: YES Which medication: Levothyroxine How Lon+ YEARS Additional Medications: METFORMIN,LOVASTATIN, LEVOTHYROXINE, HCTZ, GLIPIZIDE, SERTRALINE, IRON, JANUV IA, LISINOPRIL, INSULIN EXAM MEASUREMENTS: Bone mineral densitometry was performed using the PowerDsine System. Bone mineral density as measured about the Lumbar spine is: ----- L1-L4(G/cm2): 1.114 T Score Values are as follows: ----- L2: -0.9 ----- L3: -0.2 ----- L4: -0.7 ----- L1-L4: -0.5 Bone mineral density has: Increased 0.5% since study of: 06/07/2011 Bone mineral density about the R hip (g/cm2): 0.957 Bone mineral density about the L hip (g/cm2): 0.950 T Score values are as follows: -----R Neck: -0.6 -----L Neck: -0.6 -----R Total: 0.1 -----L Total: 0.1 Bone mineral density has: Increased 2.3% since study of: 06/07/2011 IMPRESSION: Normal (Values between +1 and -1 indicate normal bone mass). Consider repeating this study in 5 year s or sooner if there is some new clinical indication. NOTE: T-SCORE=SD OF THE YOUNG ADULT MEAN.
--- NOTE | 2017-11-23 13:57 | MM ---
Reason for exam: screening (asymptomatic). Last mammogram was performed 1 year and 6 months ago. History: Patient is postmenopausal. Family history of breast cancer in mother at age 50 and breast cancer in maternal grandmother at age 60. Physical Findings: A clinical breast exam by your physician is recommended on an annual basis and results should be correlated with mammographic findings. MG 3D Screening Mammo W/Cad Bilateral CC and MLO view(s) were taken. Prior study comparison: June 07, 2016, bilateral MG 3d screening mammo w/cad. March 24, 2015, bilateral MG screening mammo w CAD. There are scattered fibroglandular densities. Finding: There are typically benign vascular calcifications in both breasts. There is a chronic nodularity in the left breast. There is no discrete abnormality. ASSESSMENT: Benign, BI-RAD 2 RECOMMENDATION: Routine screening mammogram of both breasts in 1 year.
== END | disposition home or self-care (01) ==
LOC: RADMAMWWP 13:15
PROVIDERS: ATTEND Internal Medicine
DX: Z12.31 Encounter for screening mammogram for malignant neoplasm of breast (principal); M85.80 Other specified disorders of bone density and structure, unspecified site
CPT/HCPCS: 77063; 77067; 77080

== ENCOUNTER → 2018-07-17 | Outpatient (CLI) | payer MEDICARE ==
[2018-07-17 12:06] LABS: HCT 35.7 % (34.0-46.0); HGB 11.5 gm/dL (11.4-16.0); MCH 28.3 pg (25.0-35.0); MCHC 32.3 g/dL (31.0-37.0); MCV 87.7 fL (80.0-100.0); Platelet Count 320 k/uL (150-450); RBC 4.07 m/uL (3.80-5.40); RDW 13.6 % (11.5-15.5); WBC 8.2 k/uL (3.8-10.6)
[2018-07-17 12:20] LABS: Potassium 4.4 mmol/L (3.5-5.1)
== END ==
LOC: LABWHC1 11:08
PROVIDERS: ATTEND Internal Medicine Interventional Cardiology
DX: Z01.812 Encounter for preprocedural laboratory examination (principal); I10 Essential (primary) hypertension; E11.9 Type 2 diabetes mellitus without complications; E78.1 Pure hyperglyceridemia; R07.9 Chest pain, unspecified; R06.02 Shortness of breath
CPT/HCPCS: 36415; 80051; 82565; 84520; 85027

== ENCOUNTER 2018-07-30 10:47 | Day surgery (SDC) | payer MEDICARE ==
[2018-07-25 15:56] VITALS: BMI 33.2
[2018-07-30] MEDS ORDERED: ALPRAZolam 0.25 MG TAB PO PRN (11:03)
[2018-07-30] MEDS ORDERED: ASPIRIN 325 MG TAB PO STA (11:03)
[2018-07-30] MEDS ORDERED: ALPRAZolam 0.5 MG TAB PO PRN (11:03)
[2018-07-30] MEDS ORDERED: NITROGLYCERIN SL TABS 0.4 MG TAB SUBLINGUAL PRN (11:03)
[2018-07-30] MEDS ORDERED: SODIUM CHLORIDE 0.9% 1,000 ML in EMPTY BAG 1 BAG IV ONE (11:03)
[2018-07-30] MEDS ORDERED: ATORVASTATIN 80 MG TAB PO STA (11:03)
[2018-07-30 11:45] LABS: Glucose,Whole Blood 154 mg/dL (75-99)
[2018-07-30] MEDS ORDERED: LIDOCAINE 1% (PF) 10MG/ML VIAL SQ ONE (13:00)
[2018-07-30] MEDS: MIDAZOLAM 2 MG/2 ML VIAL IVP ONE ×2 (13:00→13:11)
[2018-07-30] MEDS ORDERED: SODIUM CHLORIDE 0.9% 1,000 ML IV ONE (13:10)
[2018-07-30] MEDS ORDERED: RX INFO: IV CONTRAST WAS GIVEN 1 EACH MISC MISCELLANE PRN (13:18)
[2018-07-30] MEDS ORDERED: IOPAMIDOL-370 125ML BTL INJ ONE (13:22)
[2018-07-30] MEDS ORDERED: SODIUM CHLORIDE 0.9% 1,000 ML IV SCH (13:30)
[2018-07-30 19:15] VITALS: BP 166/85; PULSE 80; RESP 16; TEMP 98.4
--- NOTE | 2018-07-30 22:05 | CC ---
CARDIAC CATHETERIZATION REPORT DATE OF SERVICE: July 30, 2018 PERFORMING PHYSICIAN: Leandro Augustine MD, whitewater rafting guide. PROCEDURE PERFORMED: 1. Right heart catheterization. 2. Left heart catheterization. 3. Selective right and left coronary angiogram. INDICATION: This is a pleasant 78-year-old female patient who was referred by Dr. Howell for further evaluation of shortness of breath. The patient was evaluated and was found to have no pulmonary etiology for her shortness of breath and there was concern about cardiac etiology of the shortness of breath. Because of that, the right and left heart catheterization was advised. APPROACH: Right common femoral artery and right common femoral vein. COMPLICATION: None. LEVEL OF SEDATION: Moderate with sedation length of 17 minutes. PROCEDURE DESCRIPTION: After obtaining an informed consent, the patient was brought to the cardiac blood and plasma laboratory assistant. The right common femoral vein and right common femoral artery were cannulated using micropuncture technique. Then I placed a 6-Chinese sheath in the right common femoral artery and an 8-Chinese sheath in the right common femoral vein. After that, I did selective right heart catheterization using the Ceres catheter. After that I did left heart catheterization using 6-Chinese pigtail catheter. Then I did selective right and left coronary angiogram using JR4 and JL4 catheters. After that, the procedure was completed without any complications. HEMODYNAMICS: 1. The pulmonary capillary wedge pressure was 16 mmHg. 2. PA pressures were as follows: Systolic 37, diastolic 20: Mean of 27 mmHg. 3. RV pressures were as follows: Systolic of 35 and end-diastolic of 15 mmHg. 4. RA pressure was 7 mmHg. 5. The left ventricular end-diastolic pressure was about 12 mmHg. SELECTIVE CORONARY ANGIOGRAM: 1. The right coronary artery is a medium caliber vessel. It is a dominant vessel. The RCA has mild disease in the midportion. It distally bifurcates into PDA and PLV branches, both are angiographically normal. 2. The left main is angiographically normal. It bifurcates into the circumflex and left anterior descending artery. 3. The left circumflex is a large caliber vessel. It is a nondominant vessel. The left circumflex system has mild disease only. In the midportion, gives rise into 2 obtuse marginal branches they appeared to be angiographically normal. 4. The LAD: The proximal LAD is normal. The mid LAD has mild disease only. This is by the bifurcation of a large diagonal branch which appeared to be angiographically normal and distally is normal as well. CONCLUSION: 1. Normal right heart pressures. 2. Normal left ventricular end-diastolic pressure. 3. Mild nonobstructive coronary artery disease. POSTPROCEDURE MANAGEMENT: Medical treatment and follow up with the patient. TESSY / PARTH: [id number] /
--- NOTE | 2018-07-30 22:05 | LTR ---
DATE OF SERVICE: July 30, [address] Hansen: Ms. Kira Byrd underwent a right and left heart catheterization. The right heart catheterization revealed normal right heart pressures and the left heart catheterization revealed mild nonobstructive coronary artery disease. I want to thank you for allowing us to participate in her care and please do not hesitate to call if you have any questions or concerns. Sincerely, TESSY / KENNYN: [id number] /
== END 2018-07-30 20:20 | disposition home or self-care (01) ==
LOC: CATHCVL 10:47 → 1SOBS 13:34 → CATHCVL 20:20
PROVIDERS: ATTEND Internal Medicine Interventional Cardiology
DX: I25.110 Atherosclerotic heart disease of native coronary artery with unstable angina pectoris (principal); I10 Essential (primary) hypertension; E11.9 Type 2 diabetes mellitus without complications; E78.5 Hyperlipidemia, unspecified; E78.1 Pure hyperglyceridemia; E78.00 Pure hypercholesterolemia, unspecified; J44.9 Chronic obstructive pulmonary disease, unspecified; E03.9 Hypothyroidism, unspecified; Z79.84 Long term (current) use of oral hypoglycemic drugs; Z79.890 Hormone replacement therapy; Z79.899 Other long term (current) drug therapy; Z82.49 Family history of ischemic heart disease and other diseases of the circulatory system
CPT/HCPCS: 93460; C1894 ×2; C1769 ×2; J2250; J2001; Q9967

== ENCOUNTER 2019-04-21 12:32 | Emergency (ER) | payer MEDICARE ==
[2019-04-21 13:05] VITALS: TEMP 97.7
--- NOTE | 2019-04-21 13:08 | ED ---
General Adult HPI - General Chief complaint: Extremity Injury, Lower Stated complaint: lt ankle injury Time Seen by Provider: 04/21/19 12:55 Source: patient, RN notes reviewed Mode of arrival: wheelchair Limitations: no limitations - History of Present Illness Initial comments: This is a 78-year-old female presents emergency Department complaining of left foot pain. Patient states she tripped yesterday and hurt her foot and her ankle was a little sore yesterday but not as bad today. Patient has had quite a bit of swelling on the anterior lateral aspect of her midfoot. Patient denies any toe pain. Patient denies any heel pain. Patient denies any leg pain. Patient denies any other injury at this time. - Related Data Home Medications Medication Instructions Recorded Confirmed Hydrochlorothiazide [Hydrodiuril] 25 mg PO HS 10/05/15 04/21/19 Lovastatin [Mevacor] 40 mg PO HS 10/05/15 04/21/19 Sertraline [Zoloft] 50 mg PO HS 10/05/15 04/21/19 Insulin Detemir (Levemir) [Levemir] 15 unit SQ HS 04/20/17 04/21/19 Pioglitazone [Actos] 30 mg PO QAM 04/20/17 04/21/19 glipiZIDE [Glucotrol] 10 mg PO AC-BID 04/20/17 04/21/19 Budesonide/Formoterol Fumarate 2 puff INHALATION RT-BID 07/25/18 04/21/19 [Symbicort 80-4.5 Mcg Inhaler] Levothyroxine Sodium 125 mcg PO HS 07/25/18 04/21/19 Albuterol Inhaler [Ventolin Hfa 2 puff INHALATION RT-Q6H PRN 04/21/19 04/21/19 Inhaler] metFORMIN HCL 1,000 mg PO BID 04/21/19 04/21/19 Allergies Allergy/AdvReac Type Severity Reaction Status Date / Time nitrofurantoin Allergy Unknown Verified 04/21/19 13:33 [From Macrobid] Review of Systems ROS Statement: Those systems with pertinent positive or pertinent negative responses have been documented in the HPI. ROS Other: All systems not noted in ROS Statement are negative. Past Medical History Past Medical History: Diabetes Mellitus, Hyperlipidemia, Hypertension, Osteoarthritis (OA), Thyroid Disorder Additional Past Medical History / Comment(s): SIGMOID DIVERTICULOSIS, BENIGN POLYPS REMOVED, STRESS INCONT OF URINE, HEMORRHOIDS, History of Any Multi-Drug Resistant Organisms: None Reported Past Surgical History: Hysterectomy, Orthopedic Surgery Additional Past Surgical History / Comment(s): KNEE SURGERY (2013),CORNEA TRANSPLANT Past Anesthesia/Blood Transfusion Reactions: No Reported Reaction Past Psychological History: Depression Smoking Status: Former smoker Past Alcohol Use History: None Reported Past Drug Use History: None Reported - Past Family History Father Family Medical History: Cancer Additional Family Medical History / Comment(s): LEUKEMIA Mother Family Medical History: Cancer Additional Family Medical History / Comment(s): BREAST, STOMACH,LIVER CANCER. EMPHYSEMA. General Exam - General Exam Comments Initial Comments: GENERAL Patient is well-developed and well-nourished. Patient is in mild distress. EYES Patient's pupils are equal and round. Extraocular motion is intact SKIN Unremarkable NEURO The patient is alert and oriented 3 PYSCH Patient has normal interpersonal interactions. MUSCULOSKELETAL Patient's anterior lateral aspect of the foot is swollen there is also some significant tenderness at the base of the fourth and fifth metatarsal. Ankle is not swollen and has full range of motion. Limitations: no limitations Course Vital Signs 04/21/19 12:53 Temperature 97.7 F Pulse Rate 81 Respiratory 18 Rate Blood Pressure 144/69 O2 Sat by Pulse 94 L Oximetry Procedures - Orthopedic Splinting/Casting Injury #1 Side: left Upper Extremity Immobilizer: posterior splint Lower Extremity Injury Location: short leg Lower Extremity Immobilizer: posterior splint Medical Decision Making - Medical Decision Making X-ray of the foot shows a fifth metatarsal fracture at the base. Disposition Clinical Impression: Metatarsal bone fracture Disposition: HOME SELF-CARE Condition: Good Instructions (If sedation given, give patient instructions): Foot Fracture in A dults (ED) Additional Instructions: Nonweightbearing and follow up with orthopedics tomorrow Is patient prescribed a controlled substance at d/c from ED?: No Referrals: Jill Diego NPC [Primary Care Provider] - 1-2 days Time of Disposition: 14:52
--- NOTE | 2019-04-21 13:37 | XR ---
EXAMINATION TYPE: XR ankle complete LT, XR foot complete LT DATE OF EXAM: 04/21/2019 CLINICAL HISTORY: Falling injury yesterday with pain TECHNIQUE: Frontal, lateral and oblique images of the left ankle and foot are obtained. COMPARISON: None. FINDINGS: There is no acute fracture/dislocation evident in the left ankle. The ankle mortise shows moderate narrowing with subchondral cystic change distal tibia. There is focal periosteal reaction l ateral aspect distal tibia could reflect products of old injury. Focal mild to moderate soft tissue s welling over the lateral malleolus is noted. There is acute distracted intra-articular transverse fracture base of fifth metatarsal. The joint sp aces in the left foot are preserved. Overlying soft tissue is unremarkable. IMPRESSION: There is acute distracted intra-articular fracture base of fifth metatarsal. (Alexandra type fracture) (Initial encounter closed type posttraumatic fracture)
[2019-04-21 15:10] VITALS: BP 140/70; PULSE 80; RESP 14
== END 2019-04-21 15:02 | disposition home or self-care (01) ==
LOC: EC 12:32
DX: S92.352A Displaced fracture of fifth metatarsal bone, left foot, initial encounter for closed fracture (principal); E11.9 Type 2 diabetes mellitus without complications; E78.5 Hyperlipidemia, unspecified; I10 Essential (primary) hypertension; E07.9 Disorder of thyroid, unspecified; F32.9 Major depressive disorder, single episode, unspecified; Z87.891 Personal history of nicotine dependence; Z88.1 Allergy status to other antibiotic agents; Z79.4 Long term (current) use of insulin; Z79.51 Long term (current) use of inhaled steroids; Z79.890 Hormone replacement therapy; Z79.899 Other long term (current) drug therapy; W01.0XXA Fall on same level from slipping, tripping and stumbling without subsequent striking against object, initial encounter; Y92.89 Other specified places as the place of occurrence of the external cause
CPT/HCPCS: 29515; 99283

== ENCOUNTER → 2019-05-02 | Outpatient (CLI) | payer MEDICARE | END | disposition home or self-care (01) | LOC: LABWHC1 14:54 | PROVIDERS: ATTEND Orthopaedic Surgery | DX: S92.354D Nondisplaced fracture of fifth metatarsal bone, right foot, subsequent encounter for fracture with routine healing (principal); M79.671 Pain in right foot | CPT/HCPCS: 36415; 82306 ==

== ENCOUNTER → 2019-07-02 | Outpatient (CLI) | payer MEDICARE ==
[2019-07-02 10:25] LABS: Basophils # (A) 0.1 k/uL (0-0.2); Basophils % (A) 1 %; Eosinophils # (A) 0.3 k/uL (0-0.7); Eosinophils % (A) 4 %; HCT 34.1 % (34.0-46.0); HGB 10.8 gm/dL (11.4-16.0); Hypochromasia Slight; Lymphocytes # (A) 1.4 k/uL (1.0-4.8); Lymphocytes % (A) 17 %; MCH 27.3 pg (25.0-35.0); MCHC 31.7 g/dL (31.0-37.0); MCV 86.2 fL (80.0-100.0); Mean Platelet Volume 6.1; Monocytes # (A) 0.5 k/uL (0-1.0); Monocytes % (A) 7 %; Neutrophils # (A) 5.7 k/uL (1.3-7.7); Neutrophils % (A) 69 %; Platelet Count 323 k/uL (150-450); RBC 3.96 m/uL (3.80-5.40); RDW 13.2 % (11.5-15.5); WBC 8.3 k/uL (3.8-10.6)
[2019-07-02 16:24] LABS: African American GFR (CKD) 62.9 (60.0-200.0); Albumin 4.5 g/dL (3.80-4.90); Albumin/Globulin Ratio 1.88 (1.60-3.17); Anion Gap 10.3 mmol/L (4.00-12.00); Calcium 9.4 mg/dL (8.7-10.3); Carbon Dioxide 24.7 mmol/L (21.6-31.8); Chol/HDL Ratio 1.77; Globulin 2.4 g/dL (1.6-3.3); Potassium 4.2 mmol/L (3.5-5.5); Total Bilirubin 0.4 mg/dL (0.3-1.2); Total Protein 6.9 g/dL (6.2-8.2)
[2019-07-02 17:27] LABS: Hemoglobin A1C 6.8 % (4.0-6.0)
== END | disposition home or self-care (01) ==
LOC: LABWHC1 08:34
PROVIDERS: ATTEND Nurse Practitioner Family
DX: E78.5 Hyperlipidemia, unspecified (principal); E03.9 Hypothyroidism, unspecified; D64.9 Anemia, unspecified; I10 Essential (primary) hypertension; E11.9 Type 2 diabetes mellitus without complications
CPT/HCPCS: 36415; 80053; 80061; 83036; 84439; 84443; 85025

== ENCOUNTER → 2021-01-13 | Outpatient (CLI) | payer MEDICARE ==
--- NOTE | 2021-01-18 09:40 | MM ---
Reason for exam: screening (asymptomatic). Last mammogram was performed 3 years and 2 months ago. History: Patient is postmenopausal. Family history of breast cancer in mother at age 50 and breast cancer in maternal grandmother at age 60. Physical Findings: A clinical breast exam by your physician is recommended on an annual basis and results should be correlated with mammographic findings. MG 3D Screening Mammo W/Cad Bilateral CC and MLO view(s) were taken. Prior study comparison: November 22, 2017, bilateral MG 3d screening mammo w/cad. June 07, 2016, bilateral MG 3d screening mammo w/cad. There are scattered fibroglandular densities. Left density slight lateral posterior depth CC view. Benign appearing vascular calcifications. Previous mammotome biopsy in the right breast, benign biopsy clip. This finding is changed when compared with previous exams. ASSESSMENT: Incomplete: need additional imaging evaluation, BI-RAD 0 RECOMMENDATION: Special view mammogram of the left breast. If lesion persists on supplemental views, image directed ultrasound is recommended. [facility] will attempt to contact patient to return for supplemental views and ultrasound if indicated.
== END | disposition home or self-care (01) ==
LOC: RADMAMWWP 13:35
PROVIDERS: ATTEND Family Medicine
DX: Z12.31 Encounter for screening mammogram for malignant neoplasm of breast (principal); Z78.0 Asymptomatic menopausal state; Z80.3 Family history of malignant neoplasm of breast
CPT/HCPCS: 77063; 77067

== ENCOUNTER → 2021-01-20 | Outpatient (CLI) | payer MEDICARE ==
--- NOTE | 2021-01-21 08:33 | MM ---
Reason for exam: additional evaluation requested from abnormal screening. Last mammogram was performed less than 1 month ago. History: Patient is postmenopausal. Family history of breast cancer in mother at age 50 and breast cancer in maternal grandmother at age 60. Physical Findings: Nurse did not find any significant physical abnormalities on exam. MG 3D Work Up W/Cad LT Spot compression CC and spot compression MLO view(s) were taken of the left breast. Prior study comparison: January 13, 2021, bilateral MG 3d screening mammo w/cad. November 22, 2017, bilateral MG 3d screening mammo w/cad. There are scattered fibroglandular densities. Left 1cm nodule just lateral to nipple inferior 3:30-5:30 at chest wall 11cm from nipple. These results were verbally communicated with the patient and result sheet given to the patient on 01/20/21. ASSESSMENT: Incomplete: need additional imaging evaluation, BI-RAD 0 RECOMMENDATION: Ultrasound of the left breast.
--- NOTE | 2021-01-21 08:34 | USB ---
Reason for exam: additional evaluation requested from abnormal screening. History: Patient is postmenopausal. Family history of breast cancer in mother at age 50 and breast cancer in maternal grandmother at age 60. US Breast Limited LT Left limited breast ultrasound including focal area of concern, retroareolar and axilla demonstrates no sonographic finding at mammogram, 3 month follow up diagnostic mammogram of the left breast. These results were verbally communicated with the patient and result sheet given to the patient on 01/20/21. ASSESSMENT: Probably benign, BI-RAD 3 RECOMMENDATION: Follow-up diagnostic mammogram of the left breast in 3 months.
== END | disposition home or self-care (01) ==
LOC: RADMAMWWP 13:35
PROVIDERS: ATTEND Family Medicine
DX: N64.89 Other specified disorders of breast (principal); Z78.0 Asymptomatic menopausal state; Z80.3 Family history of malignant neoplasm of breast
CPT/HCPCS: 77065; 76642; G0279; 77061

== ENCOUNTER → 2021-08-09 | Outpatient (CLI) | payer MEDICARE ==
--- NOTE | 2021-08-09 13:30 | US ---
EXAMINATION TYPE: US kidneys/renal and bladder DATE OF EXAM: 08/09/2021 COMPARISON: NONE CLINICAL HISTORY: N28.9 CKD. HTN, DM EXAM MEASUREMENTS: Right Kidney: 9.7 x 4.1 x 4.2 cm Left Kidney: 10.0 x 5.1 x 3.7 cm Right Kidney: No hydronephrosis or masses seen Left Kidney: No hydronephrosis or masses seen. There is a 1.6 x 1.9 cm cyst at the inferior pole lef t kidney. Bladder: wnl Bilateral Jets seen: Yes IMPRESSION: 1. Left renal cyst.
== END | disposition home or self-care (01) ==
LOC: RADUSWWP 12:52
PROVIDERS: ATTEND Family Medicine
DX: I12.9 Hypertensive chronic kidney disease with stage 1 through stage 4 chronic kidney disease, or unspecified chronic kidney disease (principal); N18.9 Chronic kidney disease, unspecified; E11.9 Type 2 diabetes mellitus without complications; N28.1 Cyst of kidney, acquired
CPT/HCPCS: 76770

== ENCOUNTER → 2022-03-08 | Outpatient (CLI) | payer MEDICARE ==
--- NOTE | 2022-03-08 16:48 | US ---
EXAMINATION TYPE: US kidneys/renal and bladder DATE OF EXAM: 03/08/2022 COMPARISON: US 07/2021 CLINICAL HISTORY: N18.31 KIDNEY DISEASE. CKD Stage 3a EXAM MEASUREMENTS: Right Kidney: 9.6 x 5.3 x 4.7cm Left Kidney: 11.4 x 4.3 x 3.4cm Right Kidney: No hydronephrosis or masses seen, subcentimeter peripelvic cystic area seen measuring 0.7 x 0.6 x 0.9cm Left Kidney: No hydronephrosis or masses seen, Inferior pole cystic area noted measuring 1.9 x 1.7 x 1.8cm,mid/inferior peripelvic anechoic area seen measuring 1.5 x 1.0 x 1.8cm Bladder: Appears wnl, not fully distended Bilateral Jets seen: Yes There is no evidence for hydronephrosis at this point in time. No nephrolithiasis is seen. No solid masses are identified. The urinary bladder is anechoic. Bilateral ureteral jets are seen. IMPRESSION: Bilateral renal cysts
--- NOTE | 2022-03-09 06:28 | US ---
EXAMINATION TYPE: US carotid duplex BILAT DATE OF EXAM: 03/08/2022 COMPARISON: NONE CLINICAL HISTORY: I65.23 OCCLUSION AND STENOSIS. Stenosis EXAM MEASUREMENTS: RIGHT: Peak Systolic Velocity (PSV) cm/sec ----- Right CCA: 103.0 ----- Right ICA: 131.2 ----- Right ECA: 247.6 ICA/CCA ratio: 1.3 RIGHT: End Diastole cm/sec ----- Right CCA: 18.9 ----- Right ICA: 26.8 ----- Right ECA: 0.0 LEFT: Peak Systolic Velocity (PSV) cm/sec ----- Left CCA: 102.1 ----- Left ICA: 146.1 ----- Left ECA: 91.9 ICA/CCA ratio: 1.4 LEFT: End Diastole cm/sec ----- Left CCA: 31.0 ----- Left ICA: 32.3 ----- Left ECA: 9.5 VERTEBRALS (direction of flow): Right Vertebral: Antegrade Left Vertebral: Antegrade Rhythm: Normal Bilateral tortuous CCA vessels,nonocclusive plaque seen bilaterally Suarez scale images show moderate to severe plaque bilaterally centered at the carotid bulb levels. Inc reased common carotid arterial velocities. No elevated ratios or increased end-diastolic velocities i n the internal carotid arteries. IMPRESSION: Severe atherosclerotic changes without hemodynamically significant stenosis clearly seen in either internal carotid artery. Correlate for possible uncontrolled hypertension due to elevated common carotid artery velocities bilaterally. Criteria for Assigning % of Stenosis / Diameter reduction (Estimation based on the indirect measurements of the internal carotid artery velocities (ICA PSV). 1. Normal (no stenosis)=ICA PSV < 125 cm/s: ratio < 2.0: ICA EDV<40 cm/s. 2. Less than 50% stenosis=ICA PSV < 125 cm/s: ratio < 2.0: ICA EDV<40 cm/s. 3. 50 to 69% stenosis=ICA PSV of 125 to 230 cm/s: ration 2.0 ? 4.0: ICA EDV 40-100 cm/s. 4. Greater than 70% stenosis to near occlusion= ICA PSV > 230 cm/s: ratio > 4.0: ICA EDV > 100 cm/s. 5. Near occlusion= ICA PSV velocities may be low or undetectable: variable ratio and ICA EDV. 6. Total occlusion=unable to detect flow.
== END | disposition home or self-care (01) ==
LOC: RADUSWWP 14:44
PROVIDERS: ATTEND Internal Medicine
DX: N18.31 Chronic kidney disease, stage 3a (principal); I65.23 Occlusion and stenosis of bilateral carotid arteries; N28.1 Cyst of kidney, acquired
CPT/HCPCS: 76770; 93880

== ENCOUNTER → 2022-03-14 | Outpatient (CLI) | payer MEDICARE ==
--- NOTE | 2022-03-14 15:13 | XR ---
EXAMINATION TYPE: XR chest 2V DATE OF EXAM: 03/14/2022 COMPARISON: NONE TECHNIQUE: PA and lateral views submitted. HISTORY: Shortness of breath FINDINGS: The lungs are clear and there is no pneumothorax, pleural effusion, or focal pneumonia. Heart size normal. No overt failure. Vague nodule right upper lobe. Hyperinflation suggests COPD. Hypertrophic d egenerative change of the spine. IMPRESSION: 1. COPD. Recommend CT chest exclude a vague 1 cm nodule right upper lobe.
== END | disposition home or self-care (01) ==
LOC: RADXRMAIN 14:38
PROVIDERS: ATTEND Internal Medicine
DX: J44.9 Chronic obstructive pulmonary disease, unspecified (principal)
CPT/HCPCS: 71046

== ENCOUNTER → 2022-11-16 | Outpatient (CLI) | payer MEDICARE ==
--- NOTE | 2022-11-16 13:18 | CT ---
EXAMINATION TYPE: CT chest wo con DATE OF EXAM: 11/16/2022 COMPARISON: 06/30/2022 HISTORY: nodules CT DLP: 339.4 mGycm. Automated Exposure Control for Dose Reduction was Utilized. TECHNIQUE: CT scan of the thorax is performed without IV contrast. FINDINGS: LUNGS: The lungs are grossly clear, there is no concerning consolidative pneumonia identified. Ther e is no pleural effusion or pneumothorax seen. The tracheobronchial tree is patent. Diffuse centrilo bular emphysematous changes are seen. There is patchy peripheral infiltrate in the right middle lobe axial image 33. Punctate 2-3 mm nodule seen superior segment right lower lobe axial image 30 are retrospectively stab le. Patchy density seen in the anterior segment of bilateral upper lobes and posterior left lower lob e axial image 40 most likely in the basis of atelectasis. Patchy nodules in the posterior aspect of t he left measure approximately 4 to 5 mm. 9 mm density seen in the anterior segment subpleural location right upper lobe stable. There is a 3 mm nodule right middle lobe axial image 26 retrospectively stable. There is a 1 to 2 mm nodule axial image 12 left upper lobe retrospectively stable. MEDIASTINUM: Lack of IV contrast is noted to limit evaluation for mediastinal and especially hilar ad enopathy. There are no definitive greater than 1 cm hilar or mediastinal lymph nodes. No cardiomega ly or pericardial effusion is seen. Pericardial lipomatosis seen. Heart size normal. There is dense a therosclerotic change of the coronary arteries and there is atherosclerotic change of the aorta but n o evidence of aneurysm. OTHER: There is a small hiatal hernia. There is a gallstone incidentally noted. Hypertrophic and dege nerative changes of the spine. Small focal 3 mm area of sclerosis involving mid lateral rib most like ly related to bone island IMPRESSION: 1. Peyr-ni-fgqgesdo diffuse emphysematous changes centrilobular pattern are stable. Area of subpleura l 9 mm consolidation or pleural thickening is stable. There is a new patchy area of subcutaneous pleu ral density right upper lobe measuring 11 mm axial image 33 is nonspecific but most likely post atele ctasis or pneumonitis. This could be correlated with a short-term follow-up [address] or alternative ly with PET scan. 2. Less than 5 mm pulmonary nodules are retrospectively stable. Too small to characterize likely danni ign. 3. Faint 4 to 5 mm nodule seen in the posterior segment left lower lobe most likely are postinflammat ory.
== END | disposition home or self-care (01) ==
LOC: RADCTMAIN 11:14
PROVIDERS: ATTEND Internal Medicine Critical Care Medicine
DX: J43.2 Centrilobular emphysema (principal); J94.8 Other specified pleural conditions; R91.1 Solitary pulmonary nodule
CPT/HCPCS: 71250; 82565; 84520

== ENCOUNTER 2023-06-28 10:14 | Emergency (ER) | payer MEDICARE ==
[2023-06-28 10:27] LABS: Glucose,Whole Blood 166 mg/dL (70-110)
[2023-06-28 10:38] VITALS: RESP 18; TEMP 98.4
--- NOTE | 2023-06-28 12:47 | ED ---
General Adult HPI - General Chief complaint: Weakness Stated complaint: Weakness Time Seen by Provider: 06/28/23 12:05 Source: patient, RN notes reviewed, old records reviewed Mode of arrival: ambulatory Limitations: no limitations - History of Present Illness Initial comments: This is an 82-year-old female who presents emergency department for dizziness. 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 Patient states that lasted for about half an hour now she still can simply better and has no symptoms but she would like to be checked out. Patient denies any headache patient denies any focal numbness weakness. Patient denies any chest pain difficulty breathing shortness of breath. Patient denies any recent fever chills or cough per patient's abdominal pain patient denies nausea vomiting diarrhea. Patient denies any nausea vomiting. Patient denies having symptoms of vertigo in the past. - Related Data Home Medications Medication Instructions Recorded Confirmed Lovastatin [Mevacor] 40 mg PO HS 10/05/15 06/28/23 hydroCHLOROthiazide [Hydrodiuril] 25 mg PO HS 10/05/15 06/28/23 Insulin Detemir (Levemir) [Levemir] 10 unit SQ HS 04/20/17 06/28/23 Albuterol Inhaler [Ventolin Hfa 2 puff INHALATION RT-Q6H PRN 04/21/19 06/28/23 Inhaler] Albuterol Nebulized [Ventolin 2.5 mg INHALATION RT-Q4H PRN 06/28/23 06/28/23 Nebulized] Budesonide/Formoterol Fumarate 2 puff INHALATION RT-BID 06/28/23 06/28/23 [Symbicort 160-4.5 Mcg Inhaler] Pioglitazone [Actos] 30 mg PO DAILY 06/28/23 06/28/23 Sertraline [Zoloft] 25 mg PO HS 06/28/23 06/28/23 lisinopriL [Zestril] 2.5 mg PO HS 06/28/23 06/28/23 Previous Rx's Medication Instructions Recorded Meclizine [Antivert] 25 mg PO TID #20 tab 06/28/23 Allergies Allergy/AdvReac Type Severity Reaction Status Date / Time nitrofurantoin Allergy Unknown Verified 06/28/23 13:44 [From Macrobid] Review of Systems ROS Statement: Those systems with pertinent positive or pertinent negative responses have been documented in the HPI. ROS Other: All systems not noted in ROS Statement are negative. Past Medical History Past Medical History: Diabetes Mellitus, Hyperlipidemia, Hypertension, Osteoarthritis (OA), Thyroid Disorder Additional Past Medical History / Comment(s): SIGMOID DIVERTICULOSIS, BENIGN NEENA YPS REMOVED, STRESS INCONT OF URINE, HEMORRHOIDS, History of Any Multi-Drug Resistant Organisms: None Reported Past Surgical History: Hysterectomy, Orthopedic Surgery Additional Past Surgical History / Comment(s): KNEE SURGERY (2013),[employer] Past Anesthesia/Blood Transfusion Reactions: No Reported Reaction Past Psychological History: Depression Smoking Status: Former smoker Past Alcohol Use History: None Reported Past Drug Use History: None Reported - Past Family History Father Family Medical History: Cancer Additional Family Medical History / Comment(s): LEUKEMIA Mother Family Medical History: Cancer Additional Family Medical History / Comment(s): BREAST, STOMACH,LIVER CANCER. EMPHYSEMA. General Exam - General Exam Comments Initial Comments: GENERAL: Patient is well-developed and well-nourished. Patient is nontoxic and well- hydrated and is in no acute distress. ENT: Neck is soft and supple. No significant lymphadenopathy is noted. Oropharynx is clear. Moist mucous membranes. Neck has full range of motion without eliciting any pain. EYES: The sclera were anicteric and conjunctiva were pink and moist. Extraocular movements were intact and pupils were equal round and reactive to light. Eyelids were unremarkable. PULMONARY: Unlabored respirations. Good breath sounds bilaterally. No audible rales rhonchi or wheezing was noted. CARDIOVASCULAR: There is a regular rate and rhythm without any murmurs gallops or rubs. Femoral pulses are equal bilaterally ABDOMEN: Soft and nontender with normal bowel sounds. No palpable organomegaly was noted. There is no palpable pulsatile mass. SKIN: Skin is clear with no lesions or rashes and otherwise unremarkable. NEUROLOGIC: Patient is alert and oriented x3. Cranial nerves II through XII are grossly intact. Motor and sensory are also intact. Normal speech, volume and content. Symmetrical smile. Finger to nose testing is normal bilaterally MUSCULOSKELETAL: Normal extremities with adequate strength and full range of motion. No lower extremity swelling or edema. No calf tenderness. LYMPHATICS: No significant lymphadenopathy is noted PSYCHIATRIC: Normal psychiatric evaluation. Limitations: no limitations Course Vital Signs 06/28/23 10:19 Temperature 98.4 F Pulse Rate 80 Respiratory 18 Rate Blood Pressure 127/52 O2 Sat by Pulse 98 Oximetry Medical Decision Making - Medical Decision Making EKG is interpreted by myself. EKG shows a sinus rhythm at 70 bpm FL interval 259 0 7070 QT interval 44 QTC is 424 patient's EKG shows no ST segment elevation or depression. Was pt. sent in by a medical professional or institution (, [facility], [employer] OPERATOR, urgent care, hospital, or fci...) When possible be specific @ -No Did you speak to anyone other than the patient for history (EMS, parent, family, police, friend...)? What history was obtained from this source @ -No Did you review nursing and triage notes (agree or disagree)? Why? @ -I reviewed and agree with nursing and triage notes Were old charts reviewed (outside hosp., previous admission, EMS record, old EKG, old radiological studies, urgent care reports/EKG's, fci records)? Report findings @ -No old charts were reviewed Differential Diagnosis (chest pain, altered mental status, abdominal pain women, abdominal pain men, vaginal bleeding, weakness, fever, dyspnea, syncope, headache, dizziness, GI bleed, back pain, seizure, CVA, palpatations, mental health, musculoskeletal)? @ -Differential Dizziness: Benign paroxysmal positional Vertigo, Menieres disease, otitis media, acoustic neuroma, vertebrobasilar insufficiency, cerebellar stroke, encephalitis, hypovolemic, arrhythmia, coronary artery syndrome, anemia, this is not meant to be an all-inclusive list EKG interpreted by me (3pts min.). @ -As above X-rays interpreted by me (1pt min.). @ -Chest x-ray shows no acute abnormality CT interpreted by me (1pt min.). @ -CT of the brain shows no acute abnormality U/S interpreted by me (1pt. min.). @ -None done What testing was considered but not performed or refused? (CT, X-rays, U/S, labs)? Why? @ -None What meds were considered but not given or refused? Why? @ -None Did you discuss the management of the patient with other professionals (professionals i.e. , [facility], [employer] OPERATOR, lab, RT, psych nurse, social service manager, clinical studies specialist, teacher, chief scientific officer, case management assistant)? Give summary @ -No Was smoking cessation discussed for >3mins.? @ -No Was critical care preformed (if so, how long)? @ -No Were there social determinants of health that impacted care today? How? (Homelessness, low income, unemployed, alcoholism, drug addiction, transportation, low edu. Level, literacy, decrease access to med. care, fpc, rehab)? @ -No Was there de-escalation of care discussed even if they declined (Discuss DNR or withdrawal of care, Hospice)? DNR status @ -No What co-morbidities impacted this encounter? (DM, HTN, Smoking, COPD, CAD, Cancer, CVA, ARF, Chemo, Hep., AIDS, mental health diagnosis, sleep apnea, morbid obesity)? @ -None Was patient admitted / discharged? Hospital course, mention meds given and route, prescriptions, significant lab abnormalities, going to OR and other pertinent info. @ -Patient was asymptomatic throughout her ED course. Patient seems to have vertigo-like symptoms I will send her home with some Antivert and she is to follow-up with her primary medical care doctor as needed and she can return to emergency department if symptoms worsen or she has any new symptoms. Undiagnosed new problem with uncertain prognosis? @ -No Drug Therapy requiring intensive monitoring for toxicity (Heparin, Nitro, Insulin, Cardizem)? @ -No Were any procedures done? @ -No Diagnosis/symptom? @ -Vertigo Acute, or Chronic,o r Acute on Chronic? @ -Acute Uncomplicated (without systemic symptoms) or Complicated (systemic symptoms)? @ -Complicated Side effects of treatment? @ -No Exacerbation, Progression, or Severe Exacerbation? @ -No Poses a threat to life or bodily function? How? (Chest pain, USA, IA, pneumonia, PE, COPD, DKA, ARF, appy, cholecystitis, CVA, Diverticulitis, Homicidal, Suicidal, threat to staff... and all critical care pts) @ -No - Lab Data Result diagrams: 06/28/23 12:33 06/28/23 12:33 Lab Results 06/28/23 06/28/23 06/28/23 Range/Units 10:25 12:33 12:33 WBC 8.3 (3.8-10.6) k/uL RBC 4.19 (3.80-5.40) m/uL Hgb 12.0 (11.4-16.0) gm/dL Hct 36.6 (34.0-46.0) % MCV 87.5 (80.0-100.0) fL MCH 28.6 (25.0-35.0) pg MCHC 32.7 (31.0-37.0) g/dL RDW 12.9 (11.5-15.5) % Plt Count 271 (150-450) k/uL MPV 7.9 Neutrophils % 78 % Lymphocytes % 13 % Monocytes % 4 % Eosinophils % 3 % Basophils % 0 % Neutrophils # 6.5 (1.3-7.7) k/uL Lymphocytes # 1.1 (1.0-4.8) k/uL Monocytes # 0.4 (0-1.0) k/uL Eosinophils # 0.2 (0-0.7) k/uL Basophils # 0.0 (0-0.2) k/uL Sodium 137 (137-145) mmol/L Potassium 4.3 (3.5-5.1) mmol/L Chloride 102 (98-107) mmol/L Carbon Dioxide 22 (22-30) mmol/L Anion Gap 13 mmol/L BUN 18 H (7-17) mg/dL Creatinine 1.02 (0.52-1.04) mg/dL Est GFR (CKD-EPI)AfAm 60 (>60 ml/min/1.73 sqM) Est GFR (CKD-EPI)NonAf 52 (>60 ml/min/1.73 sqM) Glucose 153 H (74-99) mg/dL POC Glucose (mg/dL) 166 H (70-110) mg/dL POC Glu Senior Investment Analyst ID Grabiel, Paloma Calcium 9.5 (8.4-10.2) mg/dL Magnesium 1.8 (1.6-2.3) mg/dL Total Bilirubin 0.6 (0.2-1.3) mg/dL AST 23 (14-36) U/L ALT 12 (4-34) U/L Alkaline Phosphatase 100 (38-126) U/L Total Protein 7.4 (6.3-8.2) g/dL Albumin 4.2 (3.5-5.0) g/dL TSH <0.015 L (0.465-4.680) mIU/L Disposition Clinical Impression: Vertigo Disposition: HOME SELF-CARE Condition: Good Instructions (If sedation given, give patient instructions): Vertigo (ED) Prescriptions: Meclizine [Antivert] 25 mg PO TID #20 tab Is patient prescribed a controlled substance at d/c from ED?: No Referrals: Rox Farrell MD [Primary Care Provider] - 1-2 days Time of Disposition: 13:58
[2023-06-28 12:55] LABS: Basophils % (A) 0 %; Eosinophils # (A) 0.2 k/uL (0-0.7); Eosinophils % (A) 3 %; HCT 36.6 % (34.0-46.0); Lymphocytes # (A) 1.1 k/uL (1.0-4.8); Lymphocytes % (A) 13 %; MCH 28.6 pg (25.0-35.0); MCHC 32.7 g/dL (31.0-37.0); MCV 87.5 fL (80.0-100.0); Mean Platelet Volume 7.9; Monocytes # (A) 0.4 k/uL (0-1.0); Monocytes % (A) 4 %; Neutrophils # (A) 6.5 k/uL (1.3-7.7); Neutrophils % (A) 78 %; Platelet Count 271 k/uL (150-450); RBC 4.19 m/uL (3.80-5.40); RDW 12.9 % (11.5-15.5); WBC 8.3 k/uL (3.8-10.6)
--- NOTE | 2023-06-28 13:08 | CT ---
EXAMINATION TYPE: CT brain wo con CT DLP: 1100.6 mGycm, Automated exposure control for dose reduction was used. DATE OF EXAM: 06/28/2023 1:02 PM COMPARISON: None. CLINICAL INDICATION:Female, 82 years old with history of weakness, dizzy TECHNIQUE: Brain: Multiple axial CT images of the brain were obtained without IV contrast. Coronal and sagittal reformats reviewed. FINDINGS: Brain: Extra-axial spaces: No abnormal extra-axial fluid collections. Ventricular system: Dilatation in proportion to cerebral atrophy. Cerebral parenchyma: Cerebral atrophy. No acute intraparenchymal hemorrhage or mass effect. The kinsey -white junction is well differentiated. Scattered hypoattenuating areas are seen within the periventr icular white matter. Cerebellum: Unremarkable. Mass effect: No evidence of midline shift. Intracranial vasculature: Atherosclerotic calcifications of the intracranial vessels. Soft tissues: Normal. Calvarium/osseous structures: No depressed skull fracture. Paranasal sinuses and mastoid air cells: Clear Visualized orbits: Bilateral aphakia IMPRESSION: 1. No acute intracranial process. 2. Nonspecific white matter changes, likely secondary to chronic small vessel ischemic disease.
--- NOTE | 2023-06-28 13:14 | XR ---
EXAMINATION TYPE: XR chest 2V DATE OF EXAM: 06/28/2023 1:10 PM COMPARISON: Chest radiographs from 03/14/2022 TECHNIQUE: XR chest 2V Frontal and lateral views of the chest. CLINICAL INDICATION:Female, 82 years old with history of Weakness; FINDINGS: Lungs/Pleura: There is flattening of the diaphragm with increased lucency of the lungs. No evidence o f pneumothorax, pleural effusion or focal consolidation. Chronic senescent change. Pulmonary vascularity: Unremarkable. Heart/mediastinum: Cardiomediastinal silhouette is unremarkable. Atherosclerotic calcifications are seen in the aorta. Musculoskeletal: No acute osseous pathology. IMPRESSION: 1. No acute cardiopulmonary disease process. 2. COPD changes.
[2023-06-28 13:18] LABS: ALT 12 U/L (4-34); African American GFR (CKD) 60 (>60 ml/min/1.73 sqM); Albumin 4.2 g/dL (3.5-5.0); Anion Gap 13 mmol/L; Blood Urea Nitrogen 18 mg/dL (7-17); Calcium 9.5 mg/dL (8.4-10.2); Carbon Dioxide 22 mmol/L (22-30); Chloride 102 mmol/L (98-107); Glucose 153 mg/dL (74-99); Magnesium 1.8 mg/dL (1.6-2.3); Non-African American GFR(CKD) 52 (>60 ml/min/1.73 sqM); Sodium 137 mmol/L (137-145); Total Bilirubin 0.6 mg/dL (0.2-1.3); Total Protein 7.4 g/dL (6.3-8.2)
[2023-06-28 13:35] LABS: AST 23 U/L (14-36); Alkaline Phosphatase 100 U/L (38-126); Potassium 4.3 mmol/L (3.5-5.1)
[2023-06-28 14:27] VITALS: BP 147/65; PULSE 89
== END 2023-06-28 14:07 | disposition home or self-care (01) ==
LOC: EC 10:14
DX: R42 Dizziness and giddiness (principal); I10 Essential (primary) hypertension; E78.5 Hyperlipidemia, unspecified; E11.9 Type 2 diabetes mellitus without complications; J44.9 Chronic obstructive pulmonary disease, unspecified; M19.90 Unspecified osteoarthritis, unspecified site; Z79.51 Long term (current) use of inhaled steroids; Z79.84 Long term (current) use of oral hypoglycemic drugs; Z79.4 Long term (current) use of insulin; Z79.899 Other long term (current) drug therapy; Z87.891 Personal history of nicotine dependence; Z88.1 Allergy status to other antibiotic agents
CPT/HCPCS: 36415; 70450; 71046; 80053; 83735; 84443; 85025; 93005; 99285

== ENCOUNTER 2023-07-10 10:40 | Emergency (ER) | payer MEDICARE ==
[2023-07-10 10:53] LABS: Glucose,Whole Blood 179 mg/dL (70-110)
[2023-07-10 11:03] VITALS: RESP 18; TEMP 97.2
[2023-07-10] MEDS ORDERED: SODIUM CHLORIDE 0.9% 500 ML 500 ML IV ONE (11:13)
[2023-07-10 11:34] LABS: Basophils % (A) 0 %; Eosinophils # (A) 0.4 k/uL (0-0.7); Eosinophils % (A) 3 %; HGB 13.8 gm/dL (11.4-16.0); Lymphocytes # (A) 1.7 k/uL (1.0-4.8); Lymphocytes % (A) 14 %; MCH 28.4 pg (25.0-35.0); MCHC 32.7 g/dL (31.0-37.0); MCV 86.8 fL (80.0-100.0); Mean Platelet Volume 8.9; Monocytes # (A) 0.6 k/uL (0-1.0); Monocytes % (A) 6 %; Neutrophils # (A) 8.7 k/uL (1.3-7.7); Neutrophils % (A) 75 %; Platelet Count 372 k/uL (150-450); RBC 4.85 m/uL (3.80-5.40); RDW 12.7 % (11.5-15.5); WBC 11.6 k/uL (3.8-10.6)
--- NOTE | 2023-07-10 11:34 | ED ---
General Adult HPI - General Chief complaint: Dizziness Stated complaint: SYNCOPE Time Seen by Provider: 07/10/23 10:55 Source: patient, RN notes reviewed, old records reviewed Mode of arrival: ambulatory Limitations: no limitations - History of Present Illness Initial comments: This is an 82-year-old female presents emergency Department after having had a near syncopal episode. Patient was out with friends and she started feeling lightheaded and eventually had to sit down. Patient states she thought she was given a passout. Patient states recently she had an episode which occurred at work and she felt as though things spinning around her. Patient states today she didn't feel as though things were spinning she thought she was given a passout. Patient sat down for about 10 minutes until she was back to her baseline. Patient denied any headache patient denies any numbness weakness. Patient any chest pain difficulty breathing shortness of breath per patient denies any palpitations. Patient denies being sick recently with any fever chil ls or cough. Patient denies any abdominal pain patient denies any nausea vomiting. Patient states she ate a normal breakfast for herself today. - Related Data Home Medications Medication Instructions Recorded Confirmed Lovastatin [Mevacor] 40 mg PO HS 10/05/15 07/10/23 hydroCHLOROthiazide [Hydrodiuril] 25 mg PO HS 10/05/15 07/10/23 Insulin Detemir (Levemir) [Levemir] 10 unit SQ HS 04/20/17 07/10/23 Albuterol Inhaler [Ventolin Hfa 2 puff INHALATION RT-Q6H PRN 04/21/19 07/10/23 Inhaler] Albuterol Nebulized [Ventolin 2.5 mg INHALATION RT-Q4H PRN 06/28/23 07/10/23 Nebulized] Budesonide/Formoterol Fumarate 2 puff INHALATION RT-BID 06/28/23 07/10/23 [Symbicort 160-4.5 Mcg Inhaler] Pioglitazone [Actos] 30 mg PO DAILY 06/28/23 07/10/23 Sertraline [Zoloft] 25 mg PO HS 06/28/23 07/10/23 lisinopriL [Zestril] 2.5 mg PO HS 06/28/23 07/10/23 Levothyroxine Sodium [Synthroid] 50 mcg PO HS 07/10/23 07/10/23 Meclizine [Antivert] 25 mg PO TID PRN 07/10/23 07/10/23 Allergies Allergy/AdvReac Type Severity Reaction Status Date / Time nitrofurantoin Allergy Unknown Verified 07/10/23 11:28 [From Macrobid] Review of Systems ROS Statement: Those systems with pertinent positive or pertinent negative responses have been documented in the HPI. ROS Other: All systems not noted in ROS Statement are negative. Past Medical History Past Medical History: Diabetes Mellitus, Hyperlipidemia, Hypertension, Osteoarthritis (OA), Thyroid Disorder Additional Past Medical History / Comment(s): SIGMOID DIVERTICULOSIS, BENIGN POLYPS REMOVED, STRESS INCONT OF URINE, HEMORRHOIDS, History of Any Multi-Drug Resistant Organisms: None Reported Past Surgical History: Hysterectomy, Orthopedic Surgery Additional Past Surgical History / Comment(s): KNEE SURGERY (2013),[employer] Past Anesthesia/Blood Transfusion Reactions: No Reported Reaction Past Psychological History: Depression Smoking Status: Former smoker Past Alcohol Use History: None Reported Past Drug Use History: None Reported - Past Family History Father Family Medical History: Cancer Additional Family Medical History / Comment(s): LEUKEMIA Mother Family Medical History: Cancer Additional Family Medical History / Comment(s): BREAST, STOMACH,LIVER CANCER. EMPHYSEMA. General Exam - General Exam Comments Initial Comments: GENERAL: Patient is well-developed and well-nourished. Patient is nontoxic and well- hydrated and is in no acute distress. ENT: Neck is soft and supple. No significant lymphadenopathy is noted. Oropharynx is clear. Moist mucous membranes. Neck has full range of motion without eliciting any pain. EYES: The sclera were anicteric and conjunctiva were pink and moist. Extraocular movements were intact and pupils were equal round and reactive to light. Eyelids were unremarkable. PULMONARY: Unlabored respirations. Good breath sounds bilaterally. No audible rales rh onchi or wheezing was noted. CARDIOVASCULAR: There is a regular rate and rhythm without any murmurs gallops or rubs. ABDOMEN: Soft and nontender with normal bowel sounds. SKIN: Skin is clear with no lesions or rashes and otherwise unremarkable. NEUROLOGIC: Patient is alert and oriented x3. Cranial nerves II through XII are grossly intact. Motor and sensory are also intact. Normal speech, volume and content. Symmetrical smile. MUSCULOSKELETAL: Normal extremities with adequate strength and full range of motion. LYMPHATICS: No significant lymphadenopathy is noted PSYCHIATRIC: Normal psychiatric evaluation. Limitations: no limitations Course Vital Signs 07/10/23 07/10/23 07/10/23 10:44 11:45 13:56 Temperature 97.2 F L Pulse Rate 91 81 Respiratory 18 18 Rate Blood Pressure 152/82 134/76 Blood Pressure 176/73 [Left Arm] Blood Pressure 193/86 [Sitting] Blood Pressure 169/79 [Standing] O2 Sat by Pulse 97 98 Oximetry Medical Decision Making - Medical Decision Making EKG was interpreted by myself. EKG shows a sinus rhythm at 77 bpm KS interval 253 QRS is 86 QT interval 370 QTC is 411. Patient's EKG shows no ST segment elevation patient does have some ST segment depression in V5 and V6 as well as some slight depression inferiorly Was pt. sent in by a medical professional or institution ([facility], [facility], urgent care, hospital, or [facility]...) When possible be specific @ -No Did you speak to anyone other than the patient for history (EMS, parent, family, police, friend...)? What history was obtained from this source @ -Patient's friends gave a lot of the history because they were there when the incident occurred Did you review nursing and triage notes (agree or disagree)? Why? @ -I reviewed and agree with nursing and triage notes Were old charts reviewed (outside hosp., previous admission, EMS record, old EKG, old radiological studies, urgent care reports/EKG's, [facility] records)? Report findings @ -I reviewed old charts and old lab work on this patient as well as old radiological studies Differential Diagnosis (chest pain, altered mental status, abdominal pain women, abdominal pain men, vaginal bleeding, weakness, fever, dyspnea, syncope, headache, dizziness, GI bleed, back pain, seizure, CVA, palpatations, mental health, musculoskeletal)? @ -Differential Syncope: Valvular disease, hypertrophic cardiomyopathy, pulmonary embolism, tamponade, tachycardia, bradycardia, DC, hypovolemia, hemorrhage, dissection, anemia, intracranial hemorrhage, seizure, hypoglycemia, carbon monoxide poisoning, this is not meant to be an all-inclusive list. EKG interpreted by me (3pts min.). @ -As above X-rays interpreted by me (1pt min.). @ -Chest x-ray shows no acute abnormality. CT interpreted by me (1pt min.). @ -None done U/S interpreted by me (1pt. min.). @ -None done What testing was considered but not performed or refused? (CT, X-rays, U/S, labs)? Why? @ -None What meds were considered but not given or refused? Why? @ -None Did you discuss the management of the patient with other professionals (professionals i.e. DrYana, PA, [facility], lab, RT, psych nurse, manager social responsibility, diamond sizer and sorter, teacher, staff nuclear weapons officer, behavioral health case manager)? Give summary @ -Dr. Farrell he agreed to follow her up as an outpatient. Was smoking cessation discussed for >3mins.? @ -No Was critical care preformed (if so, how long)? @ -No Were there social determinants of health that impacted care today? How? (Homelessness, low income, unemployed, alcoholism, drug addiction, transportation, low edu. Level, literacy, decrease access to med. care, detention, rehab)? @ -No Was there de-escalation of care discussed even if they declined (Discuss DNR or withdrawal of care, Hospice)? DNR status @ -No What co-morbidities impacted this encounter? (DM, HTN, Smoking, COPD, CAD, Cancer, CVA, ARF, Chemo, Hep., AIDS, mental health diagnosis, sleep apnea, morbid obesity)? @ -None Was patient admitted / discharged? Hospital course, mention meds given and route, prescriptions, significant lab abnormalities, going to OR and other pertinent info. @ -Patient's magnesium is a little bit low and I gave her a placement. She has been asymptomatic throughout the ED course. Patient did not want to stay in the hospital she preferred to follow-up with Dr. Farrell saw I spoke with him and he will see her this week and she will return if there is any further symptoms or new symptoms Undiagnosed new problem with uncertain prognosis? @ -No Drug Therapy requiring intensive monitoring for toxicity (Heparin, Nitro, Insulin, Cardizem)? @ -No Were any procedures done? @ -No Diagnosis/symptom? @ -Near syncope Acute, or Chronic, or Acute on Chronic? @ -Acute Uncomplicated (without systemic symptoms) or Complicated (systemic symptoms)? @ -Complicated Side effects of treatment? @ -No Exacerbation, Progression, or Severe Exacerbation? @ -No Poses a threat to life or bodily function? How? (Chest pain, USA, DC, pneumonia, PE, COPD, DKA, ARF, appy, cholecystitis, CVA, Diverticulitis, Homicidal, Suicidal, threat to staff... and all critical care pts) @ -No - Lab Data Result diagrams: 07/10/23 11:24 07/10/23 11:24 Lab Results 07/10/23 07/10/23 07/10/23 Range/Units 10:52 11:24 11:24 WBC 11.6 H (3.8-10.6) k/uL RBC 4.85 (3.80-5.40) m/uL Hgb 13.8 (11.4-16.0) gm/dL Hct 42.0 (34.0-46.0) % MCV 86.8 (80.0-100.0) fL MCH 28.4 (25.0-35.0) pg MCHC 32.7 (31.0-37.0) g/dL RDW 12.7 (11.5-15.5) % Plt Count 372 (150-450) k/uL MPV 8.9 Neutrophils % 75 % Lymphocytes % 14 % Monocytes % 6 % Eosinophils % 3 % Basophils % 0 % Neutrophils # 8.7 H (1.3-7.7) k/uL Lymphocytes # 1.7 (1.0-4.8) k/uL Monocytes # 0.6 (0-1.0) k/uL Eosinophils # 0.4 (0-0.7) k/uL Basophils # 0.0 (0-0.2) k/uL PT (10.0-12.5) sec INR (<1.2) APTT (22.0-30.0) sec Sodium (137-145) mmol/L Potassium (3.5-5.1) mmol/L Chloride (98-107) mmol/L Carbon Dioxide (22-30) mmol/L Anion Gap mmol/L BUN (7-17) mg/dL Creatinine (0.52-1.04) mg/dL Est GFR (CKD-EPI)AfAm (>60 ml/min/1.73 sqM) Est GFR (CKD-EPI)NonAf (>60 ml/min/1.73 sqM) Glucose (74-99) mg/dL POC Glucose (mg/dL) 179 H (70-110) mg/dL POC Glu Hide And Skin Processing Worker ID Ernie Reed Calcium (8.4-10.2) mg/dL Magnesium (1.6-2.3) mg/dL Total Bilirubin (0.2-1.3) mg/dL AST (14-36) U/L ALT (4-34) U/L Alkaline Phosphatase (38-126) U/L Troponin I (0.000-0.034) ng/mL Total Protein (6.3-8.2) g/dL Albumin (3.5-5.0) g/dL Urine Color Yellow Urine Appearance Clear (Clear) Urine pH 5.0 (5.0-8.0) Ur Specific [place] 1.013 (1.001-1.035) Urine Protein Negative (Negative) Urine Glucose (UA) Negative (Negative) Urine Ketones Negative (Negative) Urine Blood Negative (Negative) Urine Nitrite Negative (Negative) Urine Bilirubin Negative (Negative) Urine Urobilinogen <2.0 (<2.0) mg/dL Ur Leukocyte Esterase Small H (Negative) Urine RBC 1 (0-5) /hpf Urine WBC 6 H (0-5) /hpf Ur Squamous Epith Cells 1 (0-4) /hpf Hyaline Casts 1 (0-2) /lpf Urine Mucus Rare H (None) /hpf 07/10/23 07/10/23 07/10/23 Range/Units 11:24 11:24 13:18 WBC (3.8-10.6) k/uL RBC (3.80-5.40) m/uL Hgb (11.4-16.0) gm/dL Hct (34.0-46.0) % MCV (80.0-100.0) fL MCH (25.0-35.0) pg MCHC (31.0-37.0) g/dL RDW (11.5-15.5) % Plt Count (150-450) k/uL MPV Neutrophils % % Lymphocytes % % Monocytes % % Eosinophils % % Basophils % % Neutrophils # (1.3-7.7) k/uL Lymphocytes # (1.0-4.8) k/uL Monocytes # (0-1.0) k/uL Eosinophils # (0-0.7) k/uL Basophils # (0-0.2) k/uL PT 10.4 (10.0-12.5) sec INR 0.9 (<1.2) APTT 21.5 L (22.0-30.0) sec Sodium 138 (137-145) mmol/L Potassium 4.5 (3.5-5.1) mmol/L Chloride 102 (98-107) mmol/L Carbon Dioxide 20 L (22-30) mmol/L Anion Gap 16 mmol/L BUN 15 (7-17) mg/dL Creatinine 0.84 (0.52-1.04) mg/dL Est GFR (CKD-EPI)AfAm 75 (>60 ml/min/1.73 sqM) Est GFR (CKD-EPI)NonAf 65 (>60 ml/min/1.73 sqM) Glucose 188 H (74-99) mg/dL POC Glucose (mg/dL) (70-110) mg/dL POC Glu Hide And Skin Processing Worker ID Calcium 10.2 (8.4-10.2) mg/dL Magnesium 1.3 L (1.6-2.3) mg/dL Total Bilirubin 0.8 (0.2-1.3) mg/dL AST 27 (14-36) U/L ALT 15 (4-34) U/L Alkaline Phosphatase 114 (38-126) U/L Troponin I <0.012 (0.000-0.034) ng/mL Total Protein 8.0 (6.3-8.2) g/dL Albumin 4.5 (3.5-5.0) g/dL Urine Color Urine Appearance (Clear) Urine pH (5.0-8.0) Ur Specific [place] (1.001-1.035) Urine Protein (Negative) Urine Glucose (UA) (Negative) Urine Ketones (Negative) Urine Blood (Negative) Urine Nitrite (Negative) Urine Bilirubin (Negative) Urine Urobilinogen (<2.0) mg/dL Ur Leukocyte Esterase (Negative) Urine RBC (0-5) /hpf Urine WBC (0-5) /hpf Ur Squamous Epith Cells (0-4) /hpf Hyaline Casts (0-2) /lpf Urine Mucus (None) /hpf Disposition Clinical Impression: Hypomagnesemia, Near syncope Disposition: HOME SELF-CARE Condition: Good Instructions (If sedation given, give patient instructions): Near Syncope (ED), Hypomagnesemia (ED) Additional Instructions: Patient should follow-up with Dr. Farrell this week Patient should return to the emergency department if symptoms recur or there are any new symptoms Is patient prescribed a controlled substance at d/c from ED?: No Referrals: Rox Farrell MD [Primary Care Provider] - 1-2 days Time of Disposition: 14:58
[2023-07-10 11:44] LABS: ALT 15 U/L (4-34); AST 27 U/L (14-36); African American GFR (CKD) 75 (>60 ml/min/1.73 sqM); Albumin 4.5 g/dL (3.5-5.0); Alkaline Phosphatase 114 U/L (38-126); Anion Gap 16 mmol/L; Blood Urea Nitrogen 15 mg/dL (7-17); Calcium 10.2 mg/dL (8.4-10.2); Carbon Dioxide 20 mmol/L (22-30); Chloride 102 mmol/L (98-107); Glucose 188 mg/dL (74-99); Magnesium 1.3 mg/dL (1.6-2.3); Non-African American GFR(CKD) 65 (>60 ml/min/1.73 sqM); Sodium 138 mmol/L (137-145); Total Bilirubin 0.8 mg/dL (0.2-1.3)
[2023-07-10 12:05] LABS: Potassium 4.5 mmol/L (3.5-5.1)
--- NOTE | 2023-07-10 12:05 | XR ---
EXAMINATION TYPE: XR chest 2V DATE OF EXAM: 07/10/2023 COMPARISON: 06/28/2023 TECHNIQUE: PA and lateral views submitted. HISTORY: Chest pain FINDINGS: The lungs are clear and there is no pneumothorax, pleural effusion, or focal pneumonia. Heart size normal and no overt failure. Osseous structures demonstrate hypertrophic and degenerative changes of the spine. Atherosclerotic change of the aorta. Diffuse osteopenia. Changes of COPD. IMPRESSION: 1. No acute process.
[2023-07-10 13:02] LABS: Appearance,Urine Clear (Clear); Bilirubin,Urine Negative (Negative); Blood,Urine Negative (Negative); Color,Urine Yellow; Glucose,Urine (UA) Negative (Negative); Hyaline Casts,Urine 1 /lpf (0-2); Ketones,Urine Negative (Negative); Leukocyte Esterase,Urine Small (Negative); Mucus,Urine Rare /hpf; Nitrite,Urine Negative (Negative); Protein,Urine Negative (Negative); RBC,Urine 1 /hpf (0-5); Specific Gravity,Urine 1.013 (1.001-1.035); Squamous Epithelial Cell,Urine 1 /hpf (0-4); Urobilinogen,Urine <2.0 mg/dL (<2.0); WBC,Urine 6 /hpf (0-5)
[2023-07-10] MEDS ORDERED: MAGNESIUM SULFATE-D5W PMX 1 GM in DEXTROSE/WATER 1 100ML.BAG IVPB ONE (13:40)
[2023-07-10 13:41] LABS: INR 0.9 (<1.2); Prothrombin Time 10.4 sec (10.0-12.5)
[2023-07-10 13:43] LABS: Partial Thromboplastin Time 21.5 sec (22.0-30.0)
[2023-07-10 15:14] VITALS: PULSE 84
[2023-07-10 15:38] VITALS: BP 145/80
== END 2023-07-10 15:31 | disposition home or self-care (01) ==
LOC: EC 10:40
DX: E83.42 Hypomagnesemia (principal); R55 Syncope and collapse; E11.9 Type 2 diabetes mellitus without complications; E78.5 Hyperlipidemia, unspecified; I10 Essential (primary) hypertension; E07.9 Disorder of thyroid, unspecified; F32.A Depression, unspecified; Z79.890 Hormone replacement therapy; Z87.891 Personal history of nicotine dependence; Z79.899 Other long term (current) drug therapy; Z79.4 Long term (current) use of insulin; Z88.1 Allergy status to other antibiotic agents
CPT/HCPCS: 36415; 93005; 80053; 83735; 84484; 85025; 85610; 85730; 81001; 71046; 99285; 96365; J3475

== ENCOUNTER → 2023-08-11 | Outpatient (CLI) | payer MEDICARE ==
--- NOTE | 2023-08-11 09:28 | US ---
EXAMINATION TYPE: US carotid duplex BILAT DATE OF EXAM: 08/11/2023 COMPARISON: NONE CLINICAL INDICATION: Female, 83 years old with history of R55 SYNCOPE AND COLLAPSE; episodes of synco pe TECHNIQUE: Carotid duplex ultrasound examination. Indirect Doppler criteria was utilized. FINDINGS: EXAM MEASUREMENTS: RIGHT: Peak Systolic Velocity (PSV) cm/sec ----- Right CCA: 98.6 ----- Right ICA: 119 ----- Right ECA: 244 ICA/CCA ratio: 1.2 RIGHT: End Diastole cm/sec ----- Right CCA: 25.5 ----- Right ICA: 30 ----- Right ECA: 22.3 LEFT: Peak Systolic Velocity (PSV) cm/sec ----- Left CCA: 105 ----- Left ICA: 123 ----- Left ECA: 117 ICA/CCA ratio: 1.2 LEFT: End Diastole cm/sec ----- Left CCA: 13.7 ----- Left ICA: 32.2 ----- Left ECA: 19.5 VERTEBRALS (direction of flow): Right Vertebral: Antegrade Left Vertebral: Antegrade Rhythm: Normal ADVERTISING INSERTER NOTES: Mild atherosclerotic plaque noted bilaterally, elevated Right ECA velocity IMPRESSION: Less than 50% stenosis no bilateral carotid bifurcations. Criteria for Assigning % of Stenosis / Diameter reduction (Estimation based on the indirect measurements of the internal carotid artery velocities (ICA PSV). 1. Normal (no stenosis)=ICA PSV < 125 cm/s: ratio < 2.0: ICA EDV<40 cm/s. 2. Less than 50% stenosis=ICA PSV < 125 cm/s: ratio < 2.0: ICA EDV<40 cm/s. 3. 50 to 69% stenosis=ICA PSV of 125 to 230 cm/s: ration 2.0 ? 4.0: ICA EDV 40-100 cm/s. 4. Greater than 70% stenosis to near occlusion= ICA PSV > 230 cm/s: ratio > 4.0: ICA EDV > 100 cm/s. 5. Near occlusion= ICA PSV velocities may be low or undetectable: variable ratio and ICA EDV. 6. Total occlusion=unable to detect flow.
--- NOTE | 2023-08-11 12:01 | CA ---
Transthoracic Echo Report Name: Kira Byrd Age: 83 Gender: F : 1940 Exam Date: 08/11/2023 08:58 Exam Location: [facility] Ht (in): 60 Wt (lb): 145 Ordering Physician: Rox Farrell MD Attending/Referring Phys: Info Specialist Haris Gordon Procedure CPT: Indications: R55 VASOVAGAL SYNCOPE Cardiac Hx: Technical Quality: Fair Contrast 1: Total Dose (mL): Contrast 2: Total Dose (mL): MEASUREMENTS (Male / Female) Normal Values 2D ECHO LV Diastolic Diameter PLAX 4.3 cm 4.2 - 5.9 / 3.9 - 5.3 cm LV Systolic Diameter PLAX 3.2 cm IVS Diastolic Thickness 1.0 cm 0.6 - 1.0 / 0.6 - 0.9 cm LVPW Diastolic Thickness 1.2 cm 0.6 - 1.0 / 0.6 - 0.9 cm LV Relative Wall Thickness 0.5 RV Internal Dim ED PLAX 2.3 cm LVOT Diameter 1.9 cm Aortic Root Diameter 2.9 cm LA Systolic Diameter LX 2.3 cm 3.0 - 4.0 / 2.7 - 3.8 cm LV Diastolic Volume MOD BP 32.0 cm??? 67 - 155 / 56 - 104 cm??? LV Systolic Volume MOD BP 12.8 cm??? - 58 / 19 - 49 cm??? LV Ejection Fraction MOD BP 60.1 % >= 55 % LV Cardiac Index MOD BP 716.3 cm???/min???m??? LV Diastolic Volume MOD 4C 36.9 cm??? LV Systolic Volume MOD 4C 13.1 cm??? LV Ejection Fraction MOD 4C 64.6 % LV Cardiac Index MOD 4C 889.1 cm???/min???m??? LV Diastolic Length 4C 6.1 cm LV Systolic Length 4C 4.9 cm LV Diastolic Volume MOD 2C 26.6 cm??? LV Systolic Volume MOD 2C 12.1 cm??? LV Ejection Fraction MOD 2C 54.3 % LV Cardiac Index MOD 2C 538.8 cm???/min???m??? LV Diastolic Length 2C 5.9 cm LV Systolic Length 2C 5.1 cm LA Volume 38.4 cm??? 18 - 58 / 22 - 52 cm??? LA Volume Index 22.7 cm???/m??? 16 - 28 cm???/m??? DOPPLER AV Peak Velocity 123.9 cm/s AV Peak Gradient 6.1 mmHg LVOT Peak Velocity 81.3 cm/s LVOT Peak Gradient 2.6 mmHg LVOT Velocity Time Integral 19.9 cm LVOT Stroke Volume 54.2 cm??? LVOT Stroke Volume Index 33.3 ml/m??? LVOT Cardiac Index 2018.3 cm???/min???m??? AV Area Cont Eq pk 1.8 cm??? MV Peak Velocity 117.7 cm/s MV Peak Gradient 5.5 mmHg MV Mean Velocity 51.9 cm/s MV Mean Gradient 1.3 mmHg MV Velocity Time Integral 42.6 cm MR Peak Velocity 210.4 cm/s MR Peak Gradient 17.7 mmHg Mitral E Point Velocity 77.8 cm/s Mitral A Point Velocity 102.0 cm/s Mitral E to A Ratio 0.8 MV Deceleration Time 339.7 ms MV E' Velocity 4.8 cm/s Mitral E to MV E' Ratio 16.2 TR Peak Velocity 238.1 cm/s TR Peak Gradient 22.7 mmHg Right Ventricular Systolic Press 27.7 mmHg FINDINGS Left Ventricle Normal LV size and wall thickness. Left ventricular ejection fraction is estimated at 55-60 %. No obvious regional wall motion abnormalities. Right Ventricle Normal right ventricular size. RVSP= 28mmHg. Right Atrium Normal right atrial size. Left Atrium Mild LA dilatation Mitral Valve Structurally normal mitral valve. Aortic Valve Trileaflet aortic valve. No aortic valve stenosis or regurgitation. Tricuspid Valve Structurally normal tricuspid valve. Mild TR. Pulmonic Valve Pulmonic valve not well visualized. No pulmonic regurgitation. Pericardium Normal pericardium. Aorta Normal size aortic root. CONCLUSIONS Left ventricular ejection fraction is estimated at 55-60 %. No obvious regional wall motion abnormalities. RVSP= 28mmHg. Mild left atrial dilatation No significant valvular dysfunction Previewed by: Dr Felipe Morrison (Electronically Signed) Final Date: 11 August 2023 12:00
== END | disposition home or self-care (01) ==
LOC: RADUSWWP 06:54
PROVIDERS: ATTEND Internal Medicine
DX: I65.23 Occlusion and stenosis of bilateral carotid arteries (principal); I51.7 Cardiomegaly; R55 Syncope and collapse
CPT/HCPCS: 93270; 93306; 93880

== ENCOUNTER → 2023-11-28 | Outpatient (CLI) | payer MEDICARE ==
--- NOTE | 2023-11-28 17:04 | US ---
EXAMINATION TYPE: US thyroid st tissue head/neck DATE OF EXAM: 11/28/2023 COMPARISON: None CLINICAL INDICATION: Female, 83 years old with history of E03.9 HYPOTHYROIDISM, UNSPECIFIED; Pt state s hypothyroid- on meds for many years GLAND SIZE: Right Lobe: 3.4 x 1.0 x 1.0 cm Overall Parenchyma: heterogeneous Left Lobe: 3.6 x 1.0 x 1.0 cm Overall Parenchyma: heterogeneous Isthmus Thickness: 0.2 cm NODULES RIGHT: # of nodules measured on right: 0 LEFT: # of nodules measured on left: 0 ISTHMUS: # of nodules measured in the isthmus: 0 Bilateral neck scanned, no evidence of lymphadenopathy. Small, heterogeneous thyroid bilaterally, no definite nodules visualized. IMPRESSION: No distinct nodules are identified. Thyroid lobes are diminutive in size. Correlate with thyroid func tion testing. 2017 ACR TI-RADS LEVEL: *Highest TI-RADS level nodule reported
== END | disposition home or self-care (01) ==
LOC: RADUSWWP 12:52
PROVIDERS: ATTEND Internal Medicine
DX: E03.9 Hypothyroidism, unspecified (principal)
CPT/HCPCS: 76536

== ENCOUNTER → 2024-01-11 | Outpatient (CLI) | payer MEDICARE | END | disposition home or self-care (01) | LOC: LABWHC1 15:04 | PROVIDERS: ATTEND Internal Medicine | DX: I12.9 Hypertensive chronic kidney disease with stage 1 through stage 4 chronic kidney disease, or unspecified chronic kidney disease (principal); N18.31 Chronic kidney disease, stage 3a; E03.9 Hypothyroidism, unspecified; R91.1 Solitary pulmonary nodule | CPT/HCPCS: 36415; 83883; 84439; 84443 ==

== ENCOUNTER 2024-04-09 07:25 | Day surgery (SDC) | payer MEDICARE ==
[2024-04-09] MEDS ORDERED: LACTATED RINGERS 1,000 ML BAG ONE (07:40)
[2024-04-09] MEDS ORDERED: LIDOCAINE HCL/PF 20 MG/ML 10 ML AMP ONE (08:00)
[2024-04-09] MEDS ORDERED: PROPOFOL 10 MG/ML 20 ML VIAL IV ONE (08:00)
--- NOTE | 2024-04-19 15:52 | PCN ---
PROCEDURE NOTE PREOPERATIVE DIAGNOSES: GERD, iron deficiency anemia, screening. POSTOPERATIVE DIAGNOSES: Mild gastritis, small hiatal hernia, cecal polyp, hepatic flexure polyp, and diverticulosis. PROCEDURES PERFORMED: 1. EGD with biopsy. 2. Colonoscopy with snare polypectomy. ANESTHESIA: Sedation. SURGICAL COMPLICATIONS: None. OPERATIVE PROCEDURE: The patient was brought and placed on the OR table in a left decubitus position. The patient was sedated per anesthesia at that time. The Olympus gastroscope was inserted in the oropharynx and passed under direct visualization to the 3rd portion of the duodenum. From that point, we slowly withdrew the scope, inspected the organs carefully. There were no neoplastic or inflammatory lesions seen throughout the duodenum. The pylorus was widely patent. The stomach was carefully inspected including retroflexion. There was only mild gastritis seen. No ulcerations were noted. Retroflexion revealed a small sliding hiatal hernia. The patient's esophagus was inspected carefully and appeared normal. The Olympus colonoscope was inserted in the anus and passed under direct visualization to the base of the cecum. From that point, we slowly withdrew the scope, inspected the organs carefully. There were no neoplastic or inflammatory lesions throughout the base of the cecum. At the cecal valve itself, there was a small sessile polyp that was removed using snare electrocautery technique. The remainder of the ascending colon appeared normal. At the hepatic flexure, another small polyp was seen and removed in a similar fashion. The remainder of the transverse, descending, sigmoid, and rectum appeared normal. There was scattered diverticulosis throughout the colon with some mild narrowing throughout the sigmoid, consistent with mild chronic diverticulitis changes. Digital rectal examination was normal. PLAN: 1. Await biopsy results. 2. Continue anemia workup. MMODL / IJN: [id number] /
== END 2024-04-09 09:25 ==
LOC: ORWHC2ENDO 07:25
PROVIDERS: ATTEND Surgery
DX: Z12.11 Encounter for screening for malignant neoplasm of colon (principal); K29.50 Unspecified chronic gastritis without bleeding; D12.3 Benign neoplasm of transverse colon; D12.0 Benign neoplasm of cecum; K44.9 Diaphragmatic hernia without obstruction or gangrene; D50.9 Iron deficiency anemia, unspecified; K21.9 Gastro-esophageal reflux disease without esophagitis; K57.30 Diverticulosis of large intestine without perforation or abscess without bleeding; I10 Essential (primary) hypertension; E78.5 Hyperlipidemia, unspecified; J44.9 Chronic obstructive pulmonary disease, unspecified; G47.33 Obstructive sleep apnea (adult) (pediatric); M19.90 Unspecified osteoarthritis, unspecified site; E11.9 Type 2 diabetes mellitus without complications; E07.9 Disorder of thyroid, unspecified; Z99.89 Dependence on other enabling machines and devices; Z79.899 Other long term (current) drug therapy; Z79.02 Long term (current) use of antithrombotics/antiplatelets; Z79.84 Long term (current) use of oral hypoglycemic drugs; Z79.890 Hormone replacement therapy
CPT/HCPCS: 43239; 45385; 88305

== ENCOUNTER → 2024-08-14 | Outpatient (CLI) | payer MEDICARE ==
--- NOTE | 2024-08-15 08:07 | MM ---
Reason for Exam: Screening (asymptomatic). Last mammogram was performed 3 year(s) and 7 month(s) ago. Patient History: Menarche at age 14. First Full-Term at age 23. Hysterectomy at age 33. Postmenopausal. Maternal grandmother had breast cancer, age 60. Mother had breast cancer, age 50. Risk Values: Lizette 5 year model risk: 2.9%. NCI Lifetime model risk: 3.5%. Prior Study Comparison: 11/22/2017 Bilateral Screening Mammogram, [facility]. 01/13/2021 Bilateral Screening Mammogram, [facility]. 01/20/2021 Left Diagnostic Mammogram, [facility]. Tissue Density: There are scattered areas of fibroglandular density. Findings: Analyzed By CAD. There is no suspicious group of microcalcifications or new suspicious mass in either breast. Overall Assessment: Benign, BI-RAD 2 Management: Screening Mammogram of both breasts in 1 year. . Patient should continue monthly self-breast exams. A clinical breast exam by your physician is recommended on an annual basis. This exam should not preclude additional follow-up of suspicious palpable abnormalities. Note on Lizette scores and lifetime risk: 1. A Lizette score greater than 3% is considered moderate risk. If this is the case, consider specialist referral to assess eligibility for a risk reducing agent. 2. If overall lifetime risk for the development of breast cancer is 20% or higher, the patient may qualify for future screening with alternating mammogram and breast MRI. [facility], , 08/15/2024 8:04 AM. Electronically signed and approved by: Carlos Kwong M.D. Radiologis
== END | disposition home or self-care (01) ==
LOC: RADMAMWWP 12:35
PROVIDERS: ATTEND Internal Medicine
DX: Z12.31 Encounter for screening mammogram for malignant neoplasm of breast (principal); R92.323 Mammographic fibroglandular density, bilateral breasts; Z78.0 Asymptomatic menopausal state; Z80.3 Family history of malignant neoplasm of breast
CPT/HCPCS: 77063; 77067

== ENCOUNTER → 2025-02-25 | Outpatient (CLI) | payer MEDICARE ==
--- NOTE | 2025-02-25 11:30 | XR ---
EXAMINATION TYPE: XR chest 2V DATE OF EXAM: 02/25/2025 9:18 AM COMPARISON: Chest radiographs from 07/10/2023 TECHNIQUE: XR chest 2V Frontal and lateral views of the chest. CLINICAL INDICATION:Female, 84 years old with history of R09.89 Upper Respiratory Symptom; FINDINGS: Lungs/Pleura: There is flattening of the diaphragm with increased lucency of the lungs. No evidence o f pneumothorax, pleural effusion or focal consolidation. Pulmonary vascularity: Unremarkable. Heart/mediastinum: Cardiomediastinal silhouette is unremarkable. Atherosclerotic calcifications are seen in the aorta. Musculoskeletal: No acute osseous pathology. IMPRESSION: 1. No acute cardiopulmonary disease process. 2. COPD changes. [facility], , 02/25/2025 11:28 AM
== END | disposition home or self-care (01) ==
LOC: RADXRMAIN 08:55
PROVIDERS: ATTEND Internal Medicine
DX: J44.9 Chronic obstructive pulmonary disease, unspecified (principal); R09.89 Other specified symptoms and signs involving the circulatory and respiratory systems; I70.0 Atherosclerosis of aorta
CPT/HCPCS: 71046